=== PATIENT | male | born 1975 | race African-American/Black ===

== ENCOUNTER 2016-12-07 18:13 | Inpatient (IN) | payer OTHER ==
[2016-12-07 19:26] VITALS: BMI 18.8
--- NOTE | 2016-12-07 20:51 | HP ---
COWS - Scale Resting Pulse: 1= [place] 81-100 Sweatin= Chills/Flushing Restless Observation: 5= Unable to Sit Still Pupil Size: 1= Pupils >than Normal Bone or Joint Aches: 4=Acute Joint/Muscle Pain Runny Nose/ Eye Tearin= Runny Nose/Eyes GI Upset > 30mins: 3= Vomiting/Diarrhea Tremor Observation: 4= Gross Tremor/Twitching Yawning Observation: 0= None Anxiety or Irritability: 2=Irritable/Anxious Goose Flesh Skin: 0=Smooth Skin COWS Score: 23 CIWA Score - CIWA Score Nausea/Vomitin Muscle Tremors: 4-Moderate,w/Arms Extend Anxiety: 4-Mod. Anxious/Guarded Agitation: 4-Moderately Restless Paroxysmal Sweats: 3 Orientation: 1-Uncertain about Date Tacttile Disturbances: 3-Moderate Itch/Numb/Burn Auditory Disturbances: 0-None Visual Disturbances: 3-Moderate Sensitivity Headache: 3-Moderate CIWA-Ar Total Score: 28 Admission ROS S - HPI Chief Complaint: C/O WITHDRAWAL SX'S. SEEKING DETOX TXMENT Allergies/Adverse Reactions: Allergies Allergy/AdvReac Type Severity Reaction Status Date / Time pork derived (porcine) Allergy Intermediate Rash Verified 12/07/16 20:14 aspirin AdvReac Severe NOSEBLEED Verified 12/07/16 20:14 ibuprofen AdvReac Severe nosebleed Verified 12/07/16 20:14 History of Present Illness: 41 Y.O. TRANSGENDER MALE ADMITTED FOR OPIATE AND ALCOHOL DEPENDENCE. CLIENT IS KNOW TO [facility]. SELF REFERRED. DENIES RECENT DETOX/REHAB SERVICES. DENIES ANY SIGNIFICANT CLEAN TIME Exam Limitations: No Limitations - Ebola screening Have you traveled outside of the country in the last 21 days: No Have you had contact with anyone from an Ebola affected area: No Have you been sick,other than usual withdrawal symptoms: No Do you have a fever: No - Review of Systems Constitutional: Chills, Loss of Appetite, Malaise, Night Sweats, Changes in sleep EENT: reports: Tearing, Dental Problems (MISSING TEETH) Respiratory: reports: Shortness of Breath Cardiac: reports: No Symptoms Reported GI: reports: Nausea, Poor Appetite, Vomiting, Abdominal cramping : reports: No Symptoms Reported Musculoskeletal: reports: Back Pain, Joint Pain Integumentary: reports: No Symptoms Reported Neuro: reports: Seizure Endocrine: reports: No Symptoms Reported Hematology: reports: No Symptoms Reported Psychiatric: reports: Anxious, Depressed Other Systems: Reviewed and Negative Patient History - Patient Medical History Hx Anemia: No Hx Asthma: Yes (albuterol) Hx Chronic Obstructive Pulmonary Disease (COPD): No Hx Cancer: No Hx Cardiac Disorders: No Hx Congestive Heart Failure: No Hx Hypertension: No Hx Hypercholesterolemia: No Hx Pacemaker: No HX Cerebrovascular Accident: No Hx Seizures: Yes (etoh seizure at age 17 yrs) Hx Dementia: No Hx Diabetes: No Hx Gastrointestinal Disorders: No Hx Liver Disease: No Hx Genitourinary Disorders: No Hx Sexually Transmitted Disorders: No Hx Renal Disease (ESRD): No Hx Thyroid Disease: No Hx Human Immunodeficiency Virus (HIV): No Hx Hepatitis C: No Hx Depression: Yes Hx Suicide Attempt: No Hx Bipolar Disorder: Yes (MANIC DEPRESSION) Hx Schizophrenia: Yes Other Medical History: ANXIETY , PTSD, TRANSGENDER MALE - Patient Surgical History Past Surgical History: Yes Hx Neurologic Surgery: No Hx Cataract Extraction: No Hx Cardiac Surgery: No Hx Lung Surgery: No Hx Breast Surgery: No Hx Breast Biopsy: No Hx Abdominal Surgery: No Hx Appendectomy: No Hx Cholecystectomy: No Hx Genitourinary Surgery: No Hx Section: No Hx Orthopedic Surgery: No Other Surgical History: fx, left mandible at age 17 Anesthesia Reaction: No - PPD History Previous Implant?: Yes Documented Results: Negative w/o proof Date: 11/22/14 Results: 0 MM PPD to be Administered?: Yes - Reproductive History Last Menstrual Period: 02/23/12 - Smoking Cessation Smoking history: Current every day smoker Have you smoked in the past 12 months: No Aproximately how many cigarettes per day: 40 Cigars Per Day: 0 Hx Chewing Tobacco Use: No Initiated information on smoking cessation: Yes 'Breaking Loose' booklet given: 12/07/16 - Substance & Tx. History Hx Alcohol Use: Yes Hx Substance Use: Yes Substance Use Type: Alcohol, Cocaine, Heroin, Marijuana Hx Substance Use Treatment: Yes ([facility]) - Substances Abused Alcohol Route: Oral Frequency: Daily Amount used: liquor- 2 pints, beer- 3 , 40oz Age of first use: 15 Date of Last Use: 12/06/16 Heroin Route: Inhalation Frequency: Daily Amount used: 7 bags Age of first use: 15 Date of Last Use: 12/07/16 Family Disease History - Family Disease History Family Disease History: Heart Disease: Grandparent, [place]: Grandparent, Respiratory : Sister, Other: Father (alcohol), Mother (alcohol) Admission Physical Exam [facility] - Vital Signs Vital Signs: Vital Signs - 24 hr 12/07/16 19:23 Temperature 99.0 F Pulse Rate 88 Respiratory 20 Rate Blood Pressure 115/70 - Physical General Appearance: Yes: Appropriately Dressed, Moderate Distress, Thin, Tremorous, Anxious HEENTM: Yes: EOMI, Normocephalic, Normal Voice, Pharynx Normal, Other (EYE EXAM LIMITED DUE TO HAVING COLORED LENSES) Respiratory: Yes: Chest Non-Tender, Lungs Clear, Normal Breath Sounds, Decreased Breath Sounds, No Respiratory Distress, No Accessory Muscle Use Neck: Yes: No masses,lesions,Nodules, Supple, Trachea in good position Breast: Yes: Breast Exam Deferred Cardiology: Yes: Regular Rhythm, Regular Rate, S1, S2 Abdominal: Yes: Normal Bowel Sounds, Non Tender, Flat, Soft Genitourinary: Yes: Within Normal Limits Back: Yes: Within Normal Limits Musculoskeletal: Yes: full range of Motion, Gait Steady Extremities: Yes: Normal Range of Motion, Non-Tender, Tremors Neurological: Yes: Alert, Motor Strength 5/5 Integumentary: Yes: Normal Color, Dry, Warm Lymphatic: Yes: Within Normal Limits - Diagnostic (1) Asthma Current Visit: Yes Status: Chronic (2) Nicotine dependence Current Visit: Yes Status: Chronic Qualifiers: Nicotine product type: cigarettes Substance use status: uncomplicated Qualified Code(s): F17.210 - Nicotine dependence, cigarettes, uncomplicated (3) Alcohol dependence with uncomplicated withdrawal Current Visit: Yes Status: Chronic (4) Opioid dependence with withdrawal Current Visit: Yes Status: Chronic (5) Cocaine dependence, uncomplicated Current Visit: Yes Status: Chronic (6) Cannabis dependence, uncomplicated Current Visit: Yes Status: Chronic (7) [id number] transgender person Current Visit: Yes Status: Chronic Cleared for Admission [facility] - Detox or Rehab [facility] Level of Care: Medically Managed Detox Regimen/Protocol: Methadone/Librium [facility] Breath Alcohol Content Breath Alcohol Content: 0 Urine Drug Screen - Results Drug Screen Negative: No Urine Drug Screen Results: THC-Marijuana, EMMA-Cocaine, OPI-Opiates
[2016-12-07] MEDS ORDERED: guaiFENesin/D-METHORPHAN HB 10 ML UNIT-DOSE CUPS PO PRN (21:08)
[2016-12-07] MEDS ORDERED: METHADONE HCL 10 MG TABLET (FOR DETOX USE ONLY) PO ONE ×2 (21:08→23:00)
[2016-12-07] MEDS ORDERED: MENTHOL/PHENOL 1 EACH UD MM PRN (21:08)
[2016-12-07] MEDS ORDERED: ACETAMINOPHEN 325 MG TABLET (FP) PO PRN (21:08)
[2016-12-07] MEDS ORDERED: diphenhydrAMINE HCL 50 MG CAPSULE PO PRN (21:08)
[2016-12-07] MEDS ORDERED: MAGNESIUM HYDROX 2400MG/30ML ORAL SUSPENSION 30 ML CUP PO PRN (21:08)
[2016-12-07] MEDS ORDERED: P-EPHED 60MG/TRIPROLIDI 2.5MG TABLET PO PRN (21:08)
[2016-12-07] MEDS ORDERED: MAG HYDROX/AL HYDROX/SIMETH 30 ML UNIT-DOSE CUP PO PRN (21:08)
[2016-12-07] MEDS ORDERED: chlordiazePOXIDE HCL 25 MG CAPSULE PO PRN (21:08)
[2016-12-07] MEDS ORDERED: MAGNESIUM CITRATE 300 ML BOTTLE PO PRN (21:08)
[2016-12-07] MEDS ORDERED: LOPERAMIDE HCL 2 MG CAPSULE PO PRN (21:08)
[2016-12-07] MEDS: THIAMINE HCL 100 MG TABLET (FP) PO SCH (22:13)
[2016-12-07] MEDS: NICOTINE 21 MG/24 HOURS TOPICAL PATCH TD SCH (22:14)
[2016-12-07] MEDS: chlordiazePOXIDE HCL 25 MG CAPSULE PO SCH (22:14)
[2016-12-07] MEDS: CYCLOBENZAPRINE HCL 10 MG TABLET (FP) PO PRN (22:17)
[2016-12-08] MEDS: chlordiazePOXIDE HCL 25 MG CAPSULE PO SCH ×4 (05:53→22:22)
--- NOTE | 2016-12-08 09:14 | CONSULT ---
[facility] Psychiatric Consult - Data Date of interview: 12/08/16 Admission source: [facility] Identifying data: This is 41 years old transgender male with no [id number] hospitalization history, history of MDD and Biupolr disorder, PTSD history, inotxicated with: Opioids, Alcohol, Cannabis and Cocaine, Nicotine Substance Abuse History: - Smoking Cessation. Smoking history: Current every day smoker. Have you smoked in the past 12 months: No. Aproximately how many cigarettes per day: 40. Cigars Per Day: 0. Hx Chewing Tobacco Use: No. Initiated information on smoking cessation: Yes. 'Breaking Loose' booklet given : 12/07/16. - Substance & Tx. History. Hx Alcohol Use: Yes. Hx Substance Use : Yes. Substance Use Type: Alcohol, Cocaine, Heroin, Marijuana. Hx Substance Use Treatment: Yes ([facility]). - Substances Abused. Alcohol. Route: Oral. Frequency: Daily. Amount used: liquor- 2 pints, beer- 3 , 40oz. Age of first use: 15. Date of Last Use: 12/06/16. Heroin. Route: Inhalation. Frequency : Daily. Amount used: 7 bags. Age of first use: 15. Date of Last Use: Medical History: Asthma, Syncope, mWeight loiss, Psychiatric History: Patient reports MDD, Bipolar Disorder history, reportsa taking prior to admission: Wellbutrin XL 150mg p[oqd. Trazodone 300mg po qhs. Zoloft 100mg poqd. Seroquel 100mg po tid. Depakote 500mg po bid Physical/Sexual Abuse/Trauma History: Unclear Additional Comment: Wellbutrin XL 150mg p[oqd. Trazodone 300mg po qhs. Zoloft 100mg poqd. Seroquel 100mg po tid. Depakote 500mg po bid Mental Status Exam - Mental Status Exam Alert and Oriented to: Person Cognitive Function: Fair Patient Appearance: Unkempt Mood: Sad Affect: Flat Patient Behavior: Sedated Speech Pattern: Delayed Voice Loudness: Mildly Soft/Quiet Thought Process: Circumstantial Thought Disorder: Being Controlled Hallucinations: Denies Suicidal Ideation: Denies Homicidal Ideation: Denies Insight/Judgement: Fair Sleep: Difficulty falling asleep Appetite: Fair Muscle strength/Tone: Normal Gait/Station: Shuffling Additional Comments: Wellbutrin XL 150mg p[oqd. Trazodone 300mg po qhs. Zoloft 100mg poqd. Seroquel 100mg po tid. Depakote 500mg po bid Psychiatric Findings - Problem List (Hopkins 1, 2,3) (1) Alcohol dependence with uncomplicated withdrawal Current Visit: Yes Status: Chronic (2) Cannabis dependence, uncomplicated Current Visit: Yes Status: Chronic (3) Cocaine dependence, uncomplicated Current Visit: Yes Status: Chronic (4) [id number] transgender person Current Visit: Yes Status: Chronic (5) Nicotine dependence Current Visit: Yes Status: Chronic Qualifiers: Nicotine product type: cigarettes Substance use status: uncomplicated Qualified Code(s): F17.210 - Nicotine dependence, cigarettes, uncomplicated (6) Opioid dependence with withdrawal Current Visit: Yes Status: Chronic (7) Manic depressive disorder Current Visit: No Status: Acute (8) Bipolar disorder Current Visit: No Status: Chronic (9) Cannabis dependence Current Visit: No Status: Chronic (10) Cocaine dependence Current Visit: No Status: Chronic (11) Drug-induced mood disorder Current Visit: No Status: Chronic (12) PTSD (post-traumatic stress disorder) Current Visit: No Status: Chronic - Initial Treatment Plan Initial Treatment Plan: Wellbutrin XL 150mg p[oqd. Trazodone 300mg po qhs. Zoloft 100mg poqd. Seroquel 100mg po tid. Depakote 500mg po bid
[2016-12-08] MEDS ORDERED: METHADONE HCL 10 MG TABLET (FOR DETOX USE ONLY) PO SCH (10:00)
[2016-12-08 10:01] LABS: MCHC 33.4 g/dl (32.0-35.9); MEAN CELL VOLUME 86.7 fl (80-96); MEAN PLT VOLUME 7.5 fl (7.5-11.1); PLATELET COUNT 346 K/MM3 (134-434); RDW 16.8 % (11.9-15.9); WHITE BLOOD COUNT 7.4 K/mm3 (4.0-10.0)
[2016-12-08 10:34] LABS: ALBUMIN 3.5 g/dl (3.4-5.0); ANION GAP 8 (8-16); CALCIUM 9.4 mg/dL (8.5-10.1); CO2 29 mmol/L (21-32); GLUCOSE,RANDOM 96 mg/dL (74-106)
[2016-12-08 10:37] LABS: ALK PHOS 55 U/L (45-117); BILIRUBIN,TOTAL 0.4 mg/dL (0.2-1.0); COCKROFT - GAULT 99.98; CREATININE 0.7 mg/dL (0.7-1.3); SGOT/AST 13 U/L (15-37); SGPT/ALT 14 U/L (12-78)
[2016-12-08] MEDS: DIVALPROEX SODIUM 500 MG TABLET E.C. PO SCH ×2 (10:38→22:22)
[2016-12-08] MEDS: NICOTINE 21 MG/24 HOURS TOPICAL PATCH TD SCH (10:38)
[2016-12-08] MEDS: SERTRALINE HCL 50 MG TABLET (FP) PO SCH (10:38)
[2016-12-08] MEDS: PRENATAL VITAMINS W/ FOLIC ACID TABLET (FP) PO SCH (10:38)
--- NOTE | 2016-12-08 11:07 | PN ---
[facility] CIWA - CIWA Score Nausea/Vomitin-No Nausea/No Vomiting Muscle Tremors: 3 Anxiety: 3 Agitation: 3 Paroxysmal Sweats: 3 Orientation: 0-Oriented Tacttile Disturbances: 0-None Auditory Disturbances: 0-None Visual Disturbances: 0-None Headache: 1-Very Mild CIWA-Ar Total Score: 13 [facility] COWS - Scale Resting Pulse: 0= [place] 80 or Below Sweatin=Flushed/Facial Moisture Restless Observation: 1= Difficult to Sit Still Pupil Size: 0= Normal to Room Light Bone or Joint Aches: 2= Severe Diffuse Aches Runny Nose/ Eye Tearin= Nasal Congestion GI Upset > 30mins: 1= Stomach Cramp Tremor Observation of Outstretched Hands: 2= Slight Tremor Visible Yawning Observation: 2= >3x During Session Anxiety or Irritability: 2=Irritable/Anxious Goose Flesh Skin: 3=Piloerection COWS Score: 16 S Progress Note (SOAP) Subjective: sweats shakes interrupted sleep irritable anxiety Objective: 12/08/16 11:06 Vital Signs Temperature 97.9 F 12/08/16 09:59 Pulse Rate 67 12/08/16 09:59 Respiratory Rate 18 12/08/16 09:59 Blood Pressure 107/71 12/08/16 09:59 O2 Sat by Pulse Oximetry (%) Laboratory Tests 12/08/16 07:00 WBC 7.4 RBC 4.11 D Hgb 11.9 D Hct 35.6 D MCV 86.7 MCHC 33.4 RDW 16.8 H Plt Count 346 MPV 7.5 labs pending awake/alert ambulating no acute distress Assessment: 12/08/16 11:06 withdrawal sx Plan: continue detox increase fluids labs pending
--- NOTE | 2016-12-08 12:49 | EKG ---
Test Reason : Blood Pressure : / mmHG Vent. Rate : 076 BPM Atrial Rate : 082 BPM P-R Int : 162 ms QRS Dur : 102 ms QT Int : 368 ms P-R-T Axes : 080 050 039 degrees QTc Int : 414 ms SINUS RHYTHM WITH MARKED SINUS ARRHYTHMIA POSSIBLE LEFT ATRIAL ENLARGEMENT INCOMPLETE RIGHT BUNDLE BRANCH BLOCK BORDERLINE ECG NO PREVIOUS ECGS AVAILABLE Confirmed by JESSICA CARY MD ([id number]) on 12/08/2016 12:49:29 PM Referred By: Confirmed By:JESSICA CARY MD
[2016-12-08] MEDS: QUEtiapine FUMARATE 100 MG TABLET (FP) PO SCH ×2 (14:56→22:23)
[2016-12-08] MEDS: traZODone HCL 100 MG TABLET (FP) PO SCH (22:22)
[2016-12-08] MEDS: THIAMINE HCL 100 MG TABLET (FP) PO SCH (22:23)
[2016-12-09] MEDS: chlordiazePOXIDE HCL 25 MG CAPSULE PO SCH ×3 (05:42→17:45)
[2016-12-09] MEDS: QUEtiapine FUMARATE 100 MG TABLET (FP) PO SCH (05:42)
[2016-12-09] MEDS: SERTRALINE HCL 50 MG TABLET (FP) PO SCH ×2 (11:04→22:27)
--- NOTE | 2016-12-09 11:50 | PN ---
Psychiatric Progress Note Vital Signs: Vital Signs Period Temp Pulse Resp BP Sys/Johnson Pulse Ox Last 24 Hr 97.3 F-98.1 F 61-72 16-18 93-117/58-74 Date of Session: 12/09/16 Chief Complaint:: As per nursing report patient is sedated HPI: Patient found at bedside sedated , with sliw speech but iriented and following directions. Medications changed : Depakote 250mg po bid. Seroquel 50mg po tid. Zoloft 50mg po qhs Current Medications: Active Medications Generic Name Dose Route Start Last Admin Trade Name Freq PRN Reason Stop Dose Admin Acetaminophen 650 mg 12/07/16 21:08 Tylenol - PO Q4H PRN FEVER OR PAIN Al Hydroxide/Mg Hydroxide 30 ml 12/07/16 21:08 Mylanta Oral Suspension - PO Q6H PRN DYSPEPSIA Bupropion HCl 150 mg 12/08/16 10:00 12/08/16 10:38 Wellbutrin Xl - PO 150 mg DAILY [facility] Administration Chlordiazepoxide HCl 10 mg 12/10/16 23:00 Librium - PO 12/11/16 17:01 [id number] [facility] Chlordiazepoxide HCl 25 mg 12/07/16 21:08 Librium - PO 12/10/16 21:09 Q4H PRN WITHDRAWAL(CONT SUBST) Chlordiazepoxide HCl 25 mg 12/08/16 23:00 12/09/16 11:04 Librium - PO 12/09/16 17:01 Not Given [id number] [facility] Chlordiazepoxide HCl 15 mg 12/09/16 23:00 Librium - PO 12/10/16 17:01 [id number] [facility] Cyclobenzaprine HCl 10 mg 12/07/16 21:12 12/07/16 22:17 Flexeril - PO 10 mg TID PRN Administration MUSCLE SPASMS Diphenhydramine HCl 50 mg 12/07/16 21:08 Benadryl - PO HSMR1 PRN INSOMNIA Divalproex Sodium 250 mg 12/09/16 11:42 Depakote - PO BID [facility] Eucalyptus/Menthol/Phenol/Sorbitol 1 each 12/07/16 21:08 Cepastat Lozenge - MM Q4H PRN SORE THROAT Guaifenesin 10 ml 12/07/16 21:08 Robitussin Dm - PO Q6H PRN COUGH Loperamide HCl 4 mg 12/07/16 21:08 Imodium - PO Q6H PRN DIARRHEA Magnesium Citrate 300 ml 12/07/16 21:08 Citroma - PO Q48H PRN CONSTIPATION Magnesium Hydroxide 30 ml 12/07/16 21:08 Milk Of Magnesia - PO DAILY PRN CONSTIPATION Methadone HCl 10 mg 12/11/16 10:00 Dolophine - PO 12/11/16 10:01 DAILY [facility] Methadone HCl 15 mg 12/09/16 10:00 Dolophine - PO 12/10/16 10:01 DAILY [facility] Methadone HCl 5 mg 12/12/16 06:00 Dolophine - PO 12/12/16 06:01 DAILY@0600 [facility] Nicotine 21 mg 12/07/16 21:15 12/08/16 10:38 Nicoderm Patch - TD 21 mg DAILY [facility] Administration Nicotine Polacrilex 4 mg 12/07/16 21:08 Nicorette Gum - BC Q2H PRN NICOTINE REPLACEMENT RX Multivit/Folic Acid/Iron 1 tab 12/08/16 10:00 12/08/16 10:38 Vitamins (Sjr) - PO 1 tab DAILY [facility] Administration Pseudoephedrine/Triprolidine 1 combo 12/07/16 21:08 Actifed - PO TID PRN NASAL CONGESTION Quetiapine Fumarate 50 mg 12/09/16 11:42 Seroquel - PO TID [facility] Sertraline HCl 100 mg 12/09/16 22:00 Zoloft - PO HS [facility] Thiamine HCl 100 mg 12/07/16 22:00 12/08/16 22:23 Vitamin B1 - PO 100 mg HS [facility] Administration Trazodone HCl 300 mg 12/08/16 22:00 12/08/16 22:22 Desyrel - PO Not Given HS [facility] Mental Status Exam - Mental Status Exam Alert and Oriented to: Person Cognitive Function: Fair Patient Appearance: Unkempt Mood: Sad Affect: Flat Patient Behavior: Passive, Sedated Speech Pattern: Delayed Voice Loudness: Mildly Soft/Quiet Thought Process: Circumstantial Thought Disorder: Being Controlled Hallucinations: Denies Suicidal Ideation: Denies Homicidal Ideation: Denies Insight/Judgement: Fair Sleep: Fair Appetite: Fair Muscle strength/Tone: Mild Hypotonicity Gait/Station: Shuffling Additional Comments: Depakote 250mg po bid. Seroquel 50mg po tid. Zoloft 50mg po qhs Psychiatric Treatment Plan - Problem List (1) Alcohol dependence with uncomplicated withdrawal Current Visit: Yes (2) Cannabis dependence, uncomplicated Current Visit: Yes (3) Cocaine dependence, uncomplicated Current Visit: Yes (4) [id number] transgender person Current Visit: Yes (5) Nicotine dependence Current Visit: Yes Qualifiers: Nicotine product type: cigarettes Substance use status: uncomplicated Qualified Code(s): F17.210 - Nicotine dependence, cigarettes, uncomplicated (6) Opioid dependence with withdrawal Current Visit: Yes (7) Manic depressive disorder Current Visit: No (8) Bipolar disorder Current Visit: No (9) Cannabis dependence Current Visit: No (10) Cocaine dependence Current Visit: No (11) Drug-induced mood disorder Current Visit: No (12) PTSD (post-traumatic stress disorder) Current Visit: No Initial treatment plan: Depakote 250mg po bid. Seroquel 50mg po tid. Zoloft 50mg po qhs
[2016-12-09] MEDS: METHADONE HCL 5 MG TABLET (FOR DETOX USE ONLY) PO SCH (11:59)
[2016-12-09] MEDS: PRENATAL VITAMINS W/ FOLIC ACID TABLET (FP) PO SCH (12:04)
[2016-12-09] MEDS: NICOTINE 21 MG/24 HOURS TOPICAL PATCH TD SCH (12:04)
[2016-12-09] MEDS: DIVALPROEX SODIUM 500 MG TABLET E.C. PO SCH (12:11)
--- NOTE | 2016-12-09 12:42 | PN ---
[facility] CIWA - CIWA Score Nausea/Vomitin-No Nausea/No Vomiting Muscle Tremors: 3 Anxiety: 2 Agitation: 2 Paroxysmal Sweats: 3 Orientation: 0-Oriented Tacttile Disturbances: 0-None Auditory Disturbances: 0-None Visual Disturbances: 0-None Headache: 1-Very Mild CIWA-Ar Total Score: 11 S COWS - Scale Resting Pulse: 0= [place] 80 or Below Sweatin= Chills/Flushing Restless Observation: 0= Sits Still Pupil Size: 0= Normal to Room Light Bone or Joint Aches: 2= Severe Diffuse Aches Runny Nose/ Eye Tearin= Nasal Congestion GI Upset > 30mins: 0= None Tremor Observation of Outstretched Hands: 1= Tremor Humble, Not Seen Yawning Observation: 2= >3x During Session Anxiety or Irritability: 1=Feels Anxious/Irritable Goose Flesh Skin: 3=Piloerection COWS Score: 11 [facility] Progress Note (SOAP) Subjective: sweats very sleepy/groggy interrupted sleep Objective: 12/09/16 12:39 Vital Signs Temperature 97.9 F 12/09/16 09:54 Pulse Rate 72 12/09/16 09:54 Respiratory Rate 18 12/09/16 09:54 Blood Pressure 107/60 12/09/16 09:54 O2 Sat by Pulse Oximetry (%) Laboratory Tests 12/07/16 12/08/16 12/08/16 07:00 07:00 07:00 WBC 7.4 RBC 4.11 D Hgb 11.9 D Hct 35.6 D MCV 86.7 MCHC 33.4 RDW 16.8 H Plt Count 346 MPV 7.5 Sodium 139 Potassium 4.0 Chloride 102 Carbon Dioxide 29 Anion Gap 8 BUN 11 D Creatinine 0.7 Creat Clearance w eGFR > 60 Random Glucose 96 Calcium 9.4 Total Bilirubin 0.4 AST 13 L D ALT 14 Alkaline Phosphatase 55 D Total Protein 7.0 Albumin 3.5 RPR Titer Hepatitis C Antibody <0.1 12/08/16 07:00 WBC RBC Hgb Hct MCV MCHC RDW Plt Count MPV Sodium Potassium Chloride Carbon Dioxide Anion Gap BUN Creatinine Creat Clearance w eGFR Random Glucose Calcium Total Bilirubin AST ALT Alkaline Phosphatase Total Protein Albumin RPR Titer Nonreactive Hepatitis C Antibody awake/alert ambulating no acute distress Assessment: 12/09/16 12:39 mild withdrawal sx too sleepy, psych ordered for evaluation of medication that has been ordered. Plan: psych consultation ordered for medication revision hold librium medication until pt more awake
[2016-12-09] MEDS: QUEtiapine FUMARATE 50 MG TABLET PO SCH ×2 (13:57→22:27)
[2016-12-09] MEDS: THIAMINE HCL 100 MG TABLET (FP) PO SCH (22:26)
[2016-12-09] MEDS: CYCLOBENZAPRINE HCL 10 MG TABLET (FP) PO PRN (22:27)
[2016-12-09] MEDS: chlordiazePOXIDE 5 MG CAPSULE PO SCH (22:27)
[2016-12-09] MEDS: DIVALPROEX SODIUM 250 MG TABLET E.C. (FP) PO SCH (22:27)
[2016-12-09] MEDS: NICOTINE POLACRILEX 4 MG GUM BC PRN (22:29)
[2016-12-09] MEDS: traZODone HCL 100 MG TABLET (FP) PO SCH (22:29)
[2016-12-10] MEDS: chlordiazePOXIDE 5 MG CAPSULE PO SCH ×3 (07:04→16:56)
[2016-12-10] MEDS: QUEtiapine FUMARATE 50 MG TABLET PO SCH ×3 (07:05→22:12)
[2016-12-10] MEDS: DIVALPROEX SODIUM 250 MG TABLET E.C. (FP) PO SCH ×2 (10:52→22:12)
[2016-12-10] MEDS: METHADONE HCL 5 MG TABLET (FOR DETOX USE ONLY) PO SCH (10:53)
[2016-12-10] MEDS: PRENATAL VITAMINS W/ FOLIC ACID TABLET (FP) PO SCH (10:53)
[2016-12-10] MEDS: NICOTINE 21 MG/24 HOURS TOPICAL PATCH TD SCH (10:53)
--- NOTE | 2016-12-10 11:52 | PN ---
[facility] Progress Note (SOAP) Subjective: sweats agitation body aches Objective: 12/10/16 11:51 Vital Signs Temperature 97.9 F 12/10/16 11:03 Pulse Rate 62 12/10/16 11:03 Respiratory Rate 18 12/10/16 11:03 Blood Pressure 116/74 12/10/16 11:03 O2 Sat by Pulse Oximetry (%) awake/alert ambulating no acute distress Assessment: 12/10/16 11:52 withdrawal sx Plan: continue detox increase fluids
[2016-12-10] MEDS: NICOTINE POLACRILEX 4 MG GUM BC PRN ×2 (14:29→22:15)
[2016-12-10] MEDS: THIAMINE HCL 100 MG TABLET (FP) PO SCH (22:11)
[2016-12-10] MEDS: SERTRALINE HCL 50 MG TABLET (FP) PO SCH (22:12)
[2016-12-10] MEDS: CYCLOBENZAPRINE HCL 10 MG TABLET (FP) PO PRN (22:12)
[2016-12-10] MEDS: chlordiazePOXIDE HCL 10 MG CAPSULE PO SCH (22:12)
[2016-12-10] MEDS: traZODone HCL 100 MG TABLET (FP) PO SCH (22:29)
[2016-12-11] MEDS: chlordiazePOXIDE HCL 10 MG CAPSULE PO SCH ×3 (06:01→17:53)
[2016-12-11] MEDS: QUEtiapine FUMARATE 50 MG TABLET PO SCH ×3 (06:04→22:35)
[2016-12-11] MEDS: NICOTINE POLACRILEX 4 MG GUM BC PRN ×2 (06:06→20:54)
[2016-12-11] MEDS ORDERED: METHADONE HCL 10 MG TABLET (FOR DETOX USE ONLY) PO SCH (10:00)
[2016-12-11] MEDS: DIVALPROEX SODIUM 250 MG TABLET E.C. (FP) PO SCH ×2 (10:39→22:35)
[2016-12-11] MEDS: PRENATAL VITAMINS W/ FOLIC ACID TABLET (FP) PO SCH (10:39)
[2016-12-11] MEDS: NICOTINE 21 MG/24 HOURS TOPICAL PATCH TD SCH (10:40)
--- NOTE | 2016-12-11 15:16 | PN ---
[facility] Progress Note (SOAP) Subjective: Sweating,interrupted sleep,restless Objective: 12/11/16 15:15 Vital Signs - 8 hr 12/11/16 12/11/16 10:00 15:14 Temperature 97.2 F L 97.2 F L Pulse Rate 60 60 Respiratory 16 16 Rate Blood Pressure 108/66 108/66 Laboratory Tests 12/07/16 12/08/16 12/08/16 07:00 07:00 07:00 WBC 7.4 RBC 4.11 D Hgb 11.9 D Hct 35.6 D MCV 86.7 MCHC 33.4 RDW 16.8 H Plt Count 346 MPV 7.5 Sodium 139 Potassium 4.0 Chloride 102 Carbon Dioxide 29 Anion Gap 8 BUN 11 D Creatinine 0.7 Creat Clearance w eGFR > 60 Random Glucose 96 Calcium 9.4 Total Bilirubin 0.4 AST 13 L D ALT 14 Alkaline Phosphatase 55 D Total Protein 7.0 Albumin 3.5 Valproic Acid RPR Titer Hepatitis C Antibody <0.1 12/08/16 12/09/16 12/10/16 07:00 10:30 07:00 WBC RBC Hgb Hct MCV MCHC RDW Plt Count MPV Sodium Potassium Chloride Carbon Dioxide Anion Gap BUN Creatinine Creat Clearance w eGFR Random Glucose Calcium Total Bilirubin AST ALT Alkaline Phosphatase Total Protein Albumin Valproic Acid 3.358 L 44.971 L RPR Titer Nonreactive Hepatitis C Antibody labs noted Assessment: 12/11/16 15:15 Withdrawal sx. Plan: Continue detox
[2016-12-11] MEDS: THIAMINE HCL 100 MG TABLET (FP) PO SCH (22:35)
[2016-12-11] MEDS: traZODone HCL 100 MG TABLET (FP) PO SCH (22:35)
[2016-12-11] MEDS: SERTRALINE HCL 50 MG TABLET (FP) PO SCH (22:35)
[2016-12-12] MEDS ORDERED: METHADONE HCL 5 MG TABLET (FOR DETOX USE ONLY) PO SCH (06:00)
[2016-12-12] MEDS: QUEtiapine FUMARATE 50 MG TABLET PO SCH (06:29)
[2016-12-12] MEDS: NICOTINE POLACRILEX 4 MG GUM BC PRN (06:42)
[2016-12-12 06:49] VITALS: PULSE 70
[2016-12-12 10:23] VITALS: BP 111/67; TEMP 98.2
--- NOTE | 2016-12-12 10:36 | DS ---
[facility] Detox Discharge Summary Admission Date: 12/07/16 Discharge Date: 12/12/16 - History Present History: Alcohol Dependence, Cannabis Dependence, Cocaine Dependence, Opioid Dependence Pertinent Past History: PTSD Asthma - Physical Exam Results Vital Signs: Vital Signs Temperature 98.2 F 12/12/16 10:00 Pulse Rate 70 12/12/16 10:00 Respiratory Rate 18 12/12/16 10:00 Blood Pressure 111/67 12/12/16 10:00 O2 Sat by Pulse Oximetry (%) Pertinent Admission Physical Exam Findings: Withdrawal sx. Laboratory Last Values WBC 7.4 K/mm3 (4.0-10.0) 12/08/16 07:00 RBC 4.11 M/mm3 (4.00-5.60) D 12/08/16 07:00 Hgb 11.9 GM/dL (11.7-16.9) D 12/08/16 07:00 Hct 35.6 % (35.4-49) D 12/08/16 07:00 MCV 86.7 fl (80-96) 12/08/16 07:00 MCHC 33.4 g/dl (32.0-35.9) 12/08/16 07:00 RDW 16.8 % (11.9-15.9) H 12/08/16 07:00 Plt Count 346 K/MM3 (134-434) 12/08/16 07:00 MPV 7.5 fl (7.5-11.1) 12/08/16 07:00 Sodium 139 mmol/L (136-145) 12/08/16 07:00 Potassium 4.0 mmol/L (3.5-5.1) 12/08/16 07:00 Chloride 102 mmol/L (98-107) 12/08/16 07:00 Carbon Dioxide 29 mmol/L (21-32) 12/08/16 07:00 Anion Gap 8 (8-16) 12/08/16 07:00 BUN 11 mg/dL (7-18) D 12/08/16 07:00 Creatinine 0.7 mg/dL (0.7-1.3) 12/08/16 07:00 Creat Clearance w eGFR > 60 (>60) 12/08/16 07:00 Random Glucose 96 mg/dL (74-106) 12/08/16 07:00 Calcium 9.4 mg/dL (8.5-10.1) 12/08/16 07:00 Total Bilirubin 0.4 mg/dL (0.2-1.0) 12/08/16 07:00 AST 13 U/L (15-37) L D 12/08/16 07:00 ALT 14 U/L (12-78) 12/08/16 07:00 Alkaline Phosphatase 55 U/L (45-117) D 12/08/16 07:00 Total Protein 7.0 g/dl (6.4-8.2) 12/08/16 07:00 Albumin 3.5 g/dl (3.4-5.0) 12/08/16 07:00 Valproic Acid 44.971 ug/ml (50-100) L 12/10/16 07:00 RPR Titer Nonreactive (NONREACTIVE) 12/08/16 07:00 Hepatitis C Antibody <0.1 s/co ratio (0.0-0.9) 12/07/16 07:00 labs noted - Treatment Hospital Course: Detox Protocol Followed, Detoxed Safely, Responded well, Discharged Condition Good, Rehab Referral Accepted Patient has Accepted a Rehab Referral to: [facility] - Medication Discharge Medications: Ambulatory Orders Albuterol Sulfate Inhaler - [Ventolin HFA Inhaler -] 2 inh IH Q4H PRN #0 inh Quetiapine Fumarate [Seroquel -] 100 mg PO TID 11/25/13 Bupropion HCl [Wellbutrin -] 150 mg PO DAILY #20 tablet 11/21/14 Divalproex [Depakote -] 500 mg PO BID #60 tablet.ec 11/21/14 Sertraline HCl [Zoloft -] 100 mg PO DAILY #30 tablet 11/21/14 Trazodone HCl [Desyrel -] 300 mg PO HS 12/26/14 Estrogens,Conjugated [Premarin] 25 mg IM ONCE 12/07/16 Bupropion HCl [Wellbutrin Xl -] 150 mg PO DAILY #30 tab MDD 150 12/08/16 Divalproex [Depakote -] 500 mg PO BID #60 tablet.ec 12/08/16 Quetiapine Fumarate [Seroquel] 100 mg PO TID #90 tablet 12/08/16 Sertraline HCl [Zoloft -] 100 mg PO DAILY #30 tablet 12/08/16 Trazodone HCl [Desyrel -] 300 mg PO HS #30 tablet 12/08/16 Bupropion HCl [Wellbutrin Xl -] 150 mg PO DAILY #30 tab.sr.24h 12/09/16 Divalproex [Depakote -] 250 mg PO BID #60 tablet.ec 12/09/16 Divalproex [Depakote -] 250 mg PO BID #60 tablet.ec 12/09/16 Quetiapine Fumarate [Seroquel -] 50 mg PO BID #60 tablet 12/09/16 Quetiapine Fumarate [Seroquel -] 50 mg PO TID #90 tablet 12/09/16 Sertraline HCl [Zoloft] 100 mg PO HS #30 tablet 12/09/16 Trazodone HCl 300 mg PO HS #30 tablet 12/09/16 - Diagnosis (1) Alcohol dependence with uncomplicated withdrawal Current Visit: Yes Status: Chronic (2) Asthma Current Visit: Yes Status: Chronic (3) Cannabis dependence, uncomplicated Current Visit: Yes Status: Chronic (4) Cocaine dependence, uncomplicated Current Visit: Yes Status: Chronic (5) [id number] transgender person Current Visit: Yes Status: Chronic (6) Nicotine dependence Current Visit: Yes Status: Chronic Qualifiers: Nicotine product type: cigarettes Substance use status: uncomplicated Qualified Code(s): F17.210 - Nicotine dependence, cigarettes, uncomplicated (7) Opioid dependence with withdrawal Current Visit: Yes Status: Chronic (8) Manic depressive disorder Current Visit: No Status: Acute - AMA Did Patient Leave Against Medical Advice: No
== END 2016-12-12 11:15 | disposition home or self-care (01) | DRG 773 ==
LOC: YASAS 18:13 → Y6N 20:28
PROVIDERS: ADMIT Internal Medicine; ATTEND Internal Medicine
PROC: HZ2ZZZZ Detoxification Services for Substance Abuse Treatment (ICD-10-PCS; principal; 2016-12-07)
DX: F11.23 Opioid dependence with withdrawal (principal); F10.230 Alcohol dependence with withdrawal, uncomplicated; F14.20 Cocaine dependence, uncomplicated; F12.20 Cannabis dependence, uncomplicated; F17.210 Nicotine dependence, cigarettes, uncomplicated; F31.9 Bipolar disorder, unspecified; F19.24 Other psychoactive substance dependence with psychoactive substance-induced mood disorder; F43.10 Post-traumatic stress disorder, unspecified; J45.909 Unspecified asthma, uncomplicated; Z86.69 Personal history of other diseases of the nervous system and sense organs; Z87.890 Personal history of sex reassignment; Z59.0 Homelessness
CPT/HCPCS: 36415; 80053; 80164; 85027; 86593; 86803; 93005; 93010

== ENCOUNTER 2017-09-19 22:21 | Inpatient (IN) | payer OTHER ==
[2017-09-19 22:44] VITALS: BMI 18.8
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
[2017-09-20] MEDS ORDERED: chlordiazePOXIDE HCL 25 MG CAPSULE PO ONE (00:46)
[2017-09-20] MEDS ORDERED: chlordiazePOXIDE HCL 25 MG CAPSULE PO PRN (00:46)
[2017-09-20] MEDS ORDERED: MAGNESIUM CITRATE 300 ML BOTTLE PO PRN (00:46)
[2017-09-20] MEDS ORDERED: MAG HYDROX/AL HYDROX/SIMETH 30 ML UNIT-DOSE CUP PO PRN (00:46)
[2017-09-20] MEDS ORDERED: LOPERAMIDE HCL 2 MG CAPSULE PO PRN (00:46)
[2017-09-20] MEDS ORDERED: P-EPHED 60MG/TRIPROLIDI 2.5MG TABLET PO PRN (00:46)
[2017-09-20] MEDS ORDERED: MENTHOL/PHENOL 1 EACH UD MM PRN (00:46)
[2017-09-20] MEDS ORDERED: IBUPROFEN 400 MG TABLET (FP) PO PRN (00:46)
[2017-09-20] MEDS ORDERED: guaiFENesin/D-METHORPHAN HB 10 ML UNIT-DOSE CUPS PO PRN (00:46)
[2017-09-20] MEDS ORDERED: ACETAMINOPHEN 325 MG TABLET (FP) PO PRN (00:46)
[2017-09-20] MEDS ORDERED: MAGNESIUM HYDROX 2400MG/30ML ORAL SUSPENSION 30 ML CUP PO PRN (00:46)
[2017-09-20] MEDS ORDERED: ALBUTEROL SO4 18 GM HFA INHALER IH PRN (00:50)
[2017-09-20] MEDS ORDERED: hydrOXYzine PAMOATE 25 MG CAPSULE (FP) PO ONE (01:03)
[2017-09-20] MEDS: chlordiazePOXIDE HCL 25 MG CAPSULE PO SCH ×4 (07:08→22:08)
--- NOTE | 2017-09-20 09:04 | PN ---
S CIWA - CIWA Score Nausea/Vomitin-Mild Nausea/No Vomiting Muscle Tremors: 4-Moderate,w/Arms Extend Anxiety: 4-Mod. Anxious/Guarded Agitation: 4-Moderately Restless Paroxysmal Sweats: 1-Minimal Palms Moist Orientation: 0-Oriented Tacttile Disturbances: 1-Very Mild Itch/Numbness Auditory Disturbances: 0-None Visual Disturbances: 0-None Headache: 1-Very Mild CIWA-Ar Total Score: 16 BHS Progress Note (SOAP) Subjective: sweat tremor sleeplessness anxiety lack of energy irritable restlessness, mild gi distress Objective: 09/20/17 09:03 Vital Signs Temperature 97.7 F 09/20/17 06:25 Pulse Rate 56 L 09/20/17 06:25 Respiratory Rate 16 09/20/17 06:25 Blood Pressure 117/66 09/20/17 06:25 O2 Sat by Pulse Oximetry (%) lab not available at this time Assessment: 09/20/17 09:04 withdrawal sx Plan: continue detox
[2017-09-20] MEDS: CALCIUM (OYSTER SHELL) 500 MG TABLET (FP) PO SCH ×2 (10:20→22:30)
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
[2017-09-20] MEDS: DIVALPROEX SODIUM 250 MG TABLET E.C. PO SCH ×2 (10:54→22:07)
[2017-09-20] MEDS: PRENATAL VITAMINS W/ FOLIC ACID TABLET (FP) PO SCH (10:54)
[2017-09-20] MEDS: NICOTINE 14 MG/24 HOURS TOPICAL PATCH TD SCH (10:56)
--- NOTE | 2017-09-20 16:46 | EKG ---
Test Reason : Blood Pressure : / mmHG Vent. Rate : 060 BPM Atrial Rate : 060 BPM P-R Int : 168 ms QRS Dur : 104 ms QT Int : 390 ms P-R-T Axes : 062 041 038 degrees QTc Int : 390 ms NORMAL SINUS RHYTHM NORMAL ECG WHEN COMPARED WITH ECG OF 07-DEC-2016 21:18, INCOMPLETE RIGHT BUNDLE BRANCH BLOCK IS NO LONGER PRESENT Confirmed by MD John, Aditya ([id number]) on 09/20/2017 4:46:24 PM Referred By: Confirmed By:Aditya Lopez MD
[2017-09-20 17:04] LABS: HEMATOCRIT 44.5 % (35.4-49); HEMOGLOBIN 14.7 GM/dL (11.7-16.9); MCH 27.9 pg (25.7-33.7); MCHC 33.1 g/dl (32.0-35.9); MEAN CELL VOLUME 84.5 fl (80-96); MEAN PLT VOLUME 8.4 fl (7.5-11.1); PLATELET COUNT 383 K/MM3 (134-434); RBC 5.27 M/mm3 (4.00-5.60); RDW 16.3 % (11.9-15.9); WHITE BLOOD COUNT 7.4 K/mm3 (4.0-10.0)
[2017-09-20 17:06] LABS: ANION GAP 11 (8-16); BLOOD UREA NITROGEN 11 mg/dL (7-18); CALCIUM 8.9 mg/dL (8.5-10.1); CHLORIDE 105 mmol/L (98-107); CO2 24 mmol/L (21-32); GLUCOSE,RANDOM 93 mg/dL (74-106); POTASSIUM 3.7 mmol/L (3.5-5.1); SODIUM 140 mmol/L (136-145)
[2017-09-20 17:10] LABS: ALK PHOS 84 U/L (45-117); BILIRUBIN,TOTAL 0.4 mg/dL (0.2-1.0); CREATININE 0.8 mg/dL (0.7-1.3); SGOT/AST 15 U/L (15-37); SGPT/ALT 13 U/L (12-78); TOT PROT 7.6 g/dl (6.4-8.2)
[2017-09-20] MEDS ORDERED: QUEtiapine FUMARATE 100 MG TABLET (FP) PO SCH (22:00)
[2017-09-20] MEDS ORDERED: MELATONIN 5 MG TABLETS PO PRN (22:00)
[2017-09-20] MEDS: THIAMINE HCL 100 MG TABLET (FP) PO SCH (22:08)
[2017-09-21] MEDS: chlordiazePOXIDE HCL 25 MG CAPSULE PO SCH ×4 (05:30→22:10)
[2017-09-21] MEDS: NICOTINE 14 MG/24 HOURS TOPICAL PATCH TD SCH (10:23)
[2017-09-21] MEDS: CALCIUM (OYSTER SHELL) 500 MG TABLET (FP) PO SCH ×2 (10:23→23:11)
[2017-09-21] MEDS: PRENATAL VITAMINS W/ FOLIC ACID TABLET (FP) PO SCH (10:23)
[2017-09-21] MEDS: DIVALPROEX SODIUM 250 MG TABLET E.C. PO SCH ×2 (10:23→22:10)
[2017-09-21] MEDS: NICOTINE POLACRILEX 2 MG GUM BC PRN ×2 (10:26→23:12)
--- NOTE | 2017-09-21 11:11 | PN ---
S CIWA - CIWA Score Nausea/Vomitin Muscle Tremors: 2 Anxiety: 3 Agitation: 2 Paroxysmal Sweats: 1-Minimal Palms Moist Orientation: 0-Oriented Tacttile Disturbances: 1-Very Mild Itch/Numbness Auditory Disturbances: 0-None Visual Disturbances: 0-None Headache: 1-Very Mild CIWA-Ar Total Score: 12 BHS Progress Note (SOAP) Subjective: nausea, swetas, interrupted sleep, anxiety, tremors Objective: 09/21/17 11:10 Vital Signs - 24 hr 09/20/17 09/20/17 09/20/17 14:37 17:23 22:26 Temperature 97.5 F L 97.5 F L 97.9 F Pulse Rate 57 L 57 L 64 Respiratory 18 16 20 Rate Blood Pressure 118/62 92/62 105/67 09/21/17 09/21/17 09/21/17 00:30 03:30 06:42 Temperature 97.5 F L Pulse Rate 58 L Respiratory 18 18 16 Rate Blood Pressure 95/54 09/21/17 10:00 Temperature 97.5 F L Pulse Rate 60 Respiratory 18 Rate Blood Pressure 107/64 Laboratory Tests 09/20/17 09/20/17 09/20/17 08:30 08:30 08:30 WBC 7.4 RBC 5.27 D Hgb 14.7 D Hct 44.5 D MCV 84.5 MCH 27.9 MCHC 33.1 RDW 16.3 H Plt Count 383 MPV 8.4 D Sodium 140 Potassium 3.7 Chloride 105 Carbon Dioxide 24 Anion Gap 11 BUN 11 Creatinine 0.8 Creat Clearance w eGFR > 60 Random Glucose 93 Calcium 8.9 Total Bilirubin 0.4 AST 15 ALT 13 Alkaline Phosphatase 84 D Total Protein 7.6 Albumin 4.0 RPR Titer Nonreactive Assessment: 09/21/17 11:11 withdrawal sx - cont detox, fluids, encourage ambualtion, psych consult ordered as requested by minor
--- NOTE | 2017-09-21 14:25 | PN ---
Psychiatric Progress Note Vital Signs: Vital Signs Period Temp Pulse Resp BP Sys/Johnson Pulse Ox Last 24 Hr 97.5 F-97.9 F 57-64 16-20 92-118/54-67 Date of Session: 09/21/17 Chief Complaint:: "I would like to start my morning medication." HPI: Pt. admitted to for alcohol, cocaine, and marijuana dependence. ROS: Unremarkable. Current Medications: Active Medications Generic Name Dose Route Start Last Admin Trade Name Freq PRN Reason Stop Dose Admin Al Hydroxide/Mg Hydroxide 30 ml 09/20/17 00:46 Mylanta Oral Suspension - PO Q6H PRN DYSPEPSIA Albuterol Sulfate 2 puff 09/20/17 00:50 Ventolin Hfa Inhaler - IH Q4H PRN ASTHMA Calcium Carbonate 500 mg 09/20/17 10:00 09/21/17 10:23 Os-Saji 500mg - PO 500 mg BID ENID Administration Chlordiazepoxide HCl 25 mg 09/21/17 05:00 09/21/17 10:23 Librium - PO 09/21/17 23:01 25 mg [id number] ENID Administration Chlordiazepoxide HCl 15 mg 09/22/17 05:00 Librium - PO 09/22/17 23:01 [id number] ENID Chlordiazepoxide HCl 25 mg 09/20/17 00:46 Librium - PO 09/23/17 00:45 Q4H PRN WITHDRAWAL(CONT SUBST) Chlordiazepoxide HCl 10 mg 09/23/17 05:00 Librium - PO 09/23/17 23:01 [id number] ENID Divalproex Sodium 250 mg 09/20/17 10:00 09/21/17 10:23 Depakote - PO 250 mg BID ENID Administration Eucalyptus/Menthol/Phenol/Sorbitol 1 each 09/20/17 00:46 Cepastat Lozenge - MM Q4H PRN SORE THROAT Guaifenesin 10 ml 09/20/17 00:46 Robitussin Dm - PO Q6H PRN COUGH Loperamide HCl 4 mg 09/20/17 00:46 Imodium - PO Q6H PRN DIARRHEA Magnesium Citrate 300 ml 09/20/17 00:46 Citroma - PO Q48H PRN CONSTIPATION Magnesium Hydroxide 30 ml 09/20/17 00:46 Milk Of Magnesia - PO DAILY PRN CONSTIPATION Melatonin 5 mg 09/20/17 22:00 Melatonin PO HS PRN INSOMNIA Nicotine 14 mg 09/20/17 10:00 09/21/17 10:23 Nicoderm Patch - TD Not Given DAILY ENID Nicotine Polacrilex 2 mg 09/20/17 00:46 09/21/17 10:26 Nicorette Gum - BC 2 mg Q2H PRN Administration NICOTINE REPLACEMENT RX Multivit/Folic Acid/Iron 1 tab 09/20/17 10:00 09/21/17 10:23 Vitamins (Sjr) - PO 1 tab DAILY ENID Administration Pseudoephedrine/Triprolidine 1 combo 09/20/17 00:46 Actifed - PO TID PRN NASAL CONGESTION Quetiapine Fumarate 100 mg 09/20/17 22:00 09/20/17 22:08 Seroquel - PO Not Given HS ENID Thiamine HCl 100 mg 09/20/17 22:00 09/20/17 22:08 Vitamin B1 - PO 100 mg HS ENID Administration Medication(s) Change(s): Yes. Will add Zoloft 50mg. Current Side Effect: No Lab tests ordered: Yes (Will order depakote level. ) Lab tests reviewed: Yes Provider note:: [employer] Administrator approached patient concerning psychiatric reconsultation. Pt. requesting to restart wellbutrin and zoloft. As per pharmacy claims patient's most recent psychotrophic medications prescriptions were zoloft 100mg on 08/13/17, Depakote 250mg BID 08/29/17 (history of seizures) and Seroquel 100mg on 08/29/17. Most recent Wellbutrin 150mg XR prescription was given to patient on 11/2016. Pt. reports medication nonadherence. Today patient presents much more alert then yesterday and is able to answer most questions although is still complaining of feeling "blurry" because she was out on the streets. Pt. able to accept seroquel 100mg without any complaints of dizziness or oversedation. Will increase seroquel to 150mg per patient's request and zoloft 50mg PO daily to be started tomorrow morning. Total face to face time:: 25 Mental Status Exam - Mental Status Exam Alert and Oriented to: Time, Place, Person Cognitive Function: Good Patient Appearance: Well Groomed Mood: Sad, Euthymic Affect: Mood Congruent Patient Behavior: Appropriate, Cooperative Speech Pattern: Clear, Appropriate Voice Loudness: Normal Thought Process: Goal Oriented Thought Disorder: Not Present Hallucinations: Denies Suicidal Ideation: Denies Homicidal Ideation: Denies Insight/Judgement: Poor Sleep: Fair Appetite: Fair Muscle strength/Tone: Normal Gait/Station: Normal Psychiatric Treatment Plan - Problem List (1) Alcohol dependence with uncomplicated withdrawal Current Visit: Yes (2) Drug-induced mood disorder Current Visit: Yes (3) Nicotine dependence Current Visit: Yes Qualifiers: Nicotine product type: cigarettes Substance use status: uncomplicated Qualified Code(s): F17.210 - Nicotine dependence, cigarettes, uncomplicated (4) Schizoaffective disorder Current Visit: Yes Comment: History. Noncompliant with medications.
[2017-09-21] MEDS: THIAMINE HCL 100 MG TABLET (FP) PO SCH (22:10)
[2017-09-21] MEDS: QUEtiapine FUMARATE 50 MG TABLET PO SCH (22:11)
[2017-09-22] MEDS: chlordiazePOXIDE 5 MG CAPSULE PO SCH ×4 (06:19→22:17)
[2017-09-22] MEDS: DIVALPROEX SODIUM 250 MG TABLET E.C. PO SCH ×2 (10:24→22:17)
[2017-09-22] MEDS: CALCIUM (OYSTER SHELL) 500 MG TABLET (FP) PO SCH ×2 (10:24→22:18)
[2017-09-22] MEDS: PRENATAL VITAMINS W/ FOLIC ACID TABLET (FP) PO SCH (10:24)
[2017-09-22] MEDS: NICOTINE 14 MG/24 HOURS TOPICAL PATCH TD SCH (10:24)
[2017-09-22] MEDS: SERTRALINE HCL 50 MG TABLET (FP) PO SCH (10:25)
[2017-09-22] MEDS: NICOTINE POLACRILEX 2 MG GUM BC PRN ×3 (10:28→23:04)
--- NOTE | 2017-09-22 11:05 | PN ---
BHS Progress Note (SOAP) Subjective: ALERT,INTERRUPTED SLEEP Objective: 09/22/17 11:03 Vital Signs Temperature 98.2 F 09/22/17 11:01 Pulse Rate 18 L 09/22/17 11:01 Respiratory Rate 67 H 09/22/17 11:01 Blood Pressure 102/77 09/22/17 11:01 O2 Sat by Pulse Oximetry (%) Assessment: 09/22/17 11:03 WITHDRAWAL SYMPTOM 09/22/17 11:03 Plan: CONTINUE DETOX,DISCHARGE IN AM
[2017-09-22] MEDS: QUEtiapine FUMARATE 50 MG TABLET PO SCH (22:17)
[2017-09-22] MEDS: THIAMINE HCL 100 MG TABLET (FP) PO SCH (22:17)
[2017-09-23] MEDS: chlordiazePOXIDE HCL 10 MG CAPSULE PO SCH ×2 (05:14→10:41)
[2017-09-23] MEDS: NICOTINE POLACRILEX 2 MG GUM BC PRN (08:58)
--- NOTE | 2017-09-23 09:19 | PN ---
S Progress Note (SOAP) Subjective: ALERT,NO COMPLAINT Objective: 09/23/17 09:17 Vital Signs Temperature 97.5 F L 09/23/17 06:00 Pulse Rate 56 L 09/23/17 06:00 Respiratory Rate 16 09/23/17 06:00 Blood Pressure 100/63 09/23/17 06:00 O2 Sat by Pulse Oximetry (%) Assessment: 09/23/17 09:18 DETOX COMPLETED,NO WITHDRAWAL SYMPTOM Plan: FOLLOW UP WITH AFTER CARE PROGRAM ARRANGEMENT
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
[2017-09-23] MEDS: PRENATAL VITAMINS W/ FOLIC ACID TABLET (FP) PO SCH (09:36)
[2017-09-23] MEDS: CALCIUM (OYSTER SHELL) 500 MG TABLET (FP) PO SCH (09:36)
[2017-09-23] MEDS: SERTRALINE HCL 50 MG TABLET (FP) PO SCH (09:36)
[2017-09-23] MEDS: NICOTINE 14 MG/24 HOURS TOPICAL PATCH TD SCH (09:36)
[2017-09-23] MEDS: DIVALPROEX SODIUM 250 MG TABLET E.C. PO SCH (09:36)
[2017-09-23 10:16] VITALS: BP 110/60; PULSE 61; TEMP 97.3
[2017-09-23 15:30] LABS: URINE APPEARANCE CLOUDY; URINE BILIRUBIN NEGATIVE (<2.0 mg/dL); URINE BLOOD NEGATIVE (NEGATIVE); URINE COLOR YELLOW; URINE GLUCOSE (UA) NEGATIVE (NEGATIVE); URINE KETONE NEGATIVE (NEGATIVE); URINE LEUK ESTERASE TRACE (NEGATIVE); URINE NITRITE NEGATIVE (NEGATIVE); URINE PROTEIN NEGATIVE (NEGATIVE); URINE UROBILINOGEN NEGATIVE mg/dL (0.2-1.0)
[2017-09-23 15:52] LABS: CALCIUM OXALATE CRYSTALS RARE /hpf (NONE SEEN); EPI CELLS FEW /HPF (FEW); URINE BACTERIA FEW /hpf (NONE SEEN); URINE MUCUS MANY
== END 2017-09-23 12:28 | disposition other institution (70) | DRG 774 ==
LOC: YASAS 22:21 → Y6N 23:22
PROVIDERS: ADMIT Internal Medicine; ATTEND Internal Medicine
PROC: HZ2ZZZZ Detoxification Services for Substance Abuse Treatment (ICD-10-PCS; principal; 2017-09-19)
DX: F10.230 Alcohol dependence with withdrawal, uncomplicated (principal); F14.20 Cocaine dependence, uncomplicated; F12.20 Cannabis dependence, uncomplicated; F17.210 Nicotine dependence, cigarettes, uncomplicated; F31.9 Bipolar disorder, unspecified; F43.10 Post-traumatic stress disorder, unspecified; F41.9 Anxiety disorder, unspecified; F19.24 Other psychoactive substance dependence with psychoactive substance-induced mood disorder; F25.9 Schizoaffective disorder, unspecified; F64.0 Transsexualism; J45.909 Unspecified asthma, uncomplicated; K21.9 Gastro-esophageal reflux disease without esophagitis; R26.89 Other abnormalities of gait and mobility; Z99.89 Dependence on other enabling machines and devices; Z59.0 Homelessness
CPT/HCPCS: 36415; 80053; 80164; 81003; 81015; 85027; 86593; 93005; 93010

== ENCOUNTER 2017-09-23 11:28 | Inpatient (IN) | payer OTHER ==
[2017-09-23] MEDS ORDERED: MAGNESIUM HYDROX 2400MG/30ML ORAL SUSPENSION 30 ML CUP PO PRN (13:52)
[2017-09-23] MEDS ORDERED: hydrOXYzine PAMOATE 50 MG CAPSULE (FP) PO PRN (13:52)
[2017-09-23] MEDS ORDERED: P-EPHED 60MG/TRIPROLIDI 2.5MG TABLET PO PRN (13:52)
[2017-09-23] MEDS ORDERED: LOPERAMIDE HCL 2 MG CAPSULE PO PRN (13:52)
[2017-09-23] MEDS ORDERED: guaiFENesin/D-METHORPHAN HB 10 ML UNIT-DOSE CUPS PO PRN (13:52)
[2017-09-23] MEDS ORDERED: ACETAMINOPHEN 325 MG TABLET (FP) PO PRN (13:52)
[2017-09-23] MEDS ORDERED: MAG HYDROX/AL HYDROX/SIMETH 30 ML UNIT-DOSE CUP PO PRN (13:52)
[2017-09-23] MEDS ORDERED: MAGNESIUM CITRATE 300 ML BOTTLE PO PRN (13:52)
[2017-09-23] MEDS ORDERED: MENTHOL/PHENOL 1 EACH UD MM PRN (13:52)
[2017-09-23] MEDS ORDERED: ALBUTEROL SO4 18 GM HFA INHALER IH PRN (13:53)
[2017-09-23] MEDS ORDERED: GABAPENTIN 100 MG CAPSULE (FP) PO SCH ×2 (14:00→14:32)
[2017-09-23] MEDS ORDERED: ESTROGENS,CONJUGATED 25 MG VIAL IM SCH (14:00)
--- NOTE | 2017-09-23 15:09 | HP ---
[facility] Rehab Assess/Revision - Admission History Admitted to Rehab from: [facility] [place] Date of Admission to Rehab: 09/23/17 - Findings Detox History & Physical reviewed: Yes Concur with findings: Yes Comments/Additional Findings: FOR REHAB PROTOCOL Inpatient Rehab Admission - Initial Determination Are CD services needed?: Yes Free of communicable disease: Yes Not in need of hospitalization: Yes - Rehab Admission Criteria Previous failed treatment: Yes Poor recovery environment: Yes Comorbidities: Yes Lacks judgement: No Patient is meeting Inpatient Rehab admission criteria:: Yes
--- NOTE | 2017-09-23 16:20 | HP ---
Psychiatrist Admission - Data Date of interview: 09/23/17 Admission source: [address] [place] [address] Identifying data: This is the first admission to [address] [place] [address] for this 42 years old single childless female,homeless,no financial support. Medical History: [place] ADAMSON leg surgery(3),ambulates with cane. Psychiatric History: Patient reports long psychiatric history,starting since childhood due to behavioral problems.She was placed on Celexa .Patient reports a few psychiatric admissions ,no suicidal attempts.Patient was seen by psychiatrist at [facility].She was on Wellbutrin XL 150 mg po am, Seroquel 100 mg po bid plus 300 mg po hs,DepAKOTE 250 MG PO BID,Trazodone 150 mg po hs. Physical/Sexual Abuse/Trauma History: Patient is not willing to discuss this issue. Allergies/Adverse Reactions: Allergies Allergy/AdvReac Type Severity Reaction Status Date / Time pork derived (porcine) Allergy Intermediate Rash Verified 09/19/17 22:50 aspirin AdvReac Severe NOSEBLEED Verified 09/19/17 22:50 ibuprofen AdvReac Severe nosebleed Verified 09/19/17 22:50 Date of last physical exam: 09/19/17 Concur with the findings of this exam: Yes - Substance Abuse/Tx History Hx Alcohol Use: Yes (drinking since 9 yo,1 pint of vodka,2 six packs of beer) Hx Substance Use: Yes Substance Use Type: Alcohol, Cocaine (marijuana since 15 yo,4 bags daily, cocaine since 15 yo,4 bags daily), Marijuana Hx Substance Use Treatment: Yes Mental Status Exam - Mental Status Exam Alert and Oriented to: Time, Place, Person Cognitive Function: Grossly Intact Patient Appearance: Well Groomed Mood: Euthymic Affect: Mood Congruent Patient Behavior: Cooperative Speech Pattern: Clear Voice Loudness: Normal Thought Process: Goal Oriented Thought Disorder: Not Present Hallucinations: Denies Suicidal Ideation: Denies Homicidal Ideation: Denies Insight/Judgement: Fair Sleep: Fair Appetite: Good Muscle strength/Tone: Normal Gait/Station: Normal Psychiatric Findings - Problem List ([place] 1, 2,3) (1) Left knee injury Status: Chronic (2) Asthma Status: Chronic (3) Bipolar disorder Status: Chronic (4) Cannabis dependence, uncomplicated Status: Chronic (5) Alcohol dependence Status: Chronic (6) GERD (gastroesophageal reflux disease) Status: Chronic (7) Sysq-pq-[id number] transgender person Status: Chronic (8) Nicotine dependence Status: Chronic Qualifiers: Nicotine product type: cigarettes Substance use status: uncomplicated Qualified Code(s): F17.210 - Nicotine dependence, cigarettes, uncomplicated (9) PTSD (post-traumatic stress disorder) Status: Chronic (10) Seizures Status: Chronic - Initial Treatment Plan Initial Treatment Plan: Depakote 250 mg po bid,Wellbutrin XL 150 mg po am, Seroquel 100 mg po bid and 200 mg po hs.
[2017-09-23 16:43] VITALS: BP 100/68; PULSE 67; TEMP 97
[2017-09-23] MEDS ORDERED: ESTROGENS,CONJUGATED 25 MG VIAL IM ONE (17:00)
[2017-09-23] MEDS ORDERED: PT OWN MED DRAWER 7, Y5N ONE (17:21)
[2017-09-23] MEDS ORDERED: NICOTINE POLACRILEX 4 MG GUM BUC PRN (20:41)
[2017-09-23] MEDS ORDERED: MELATONIN 5 MG TABLETS PO PRN (22:00)
[2017-09-23] MEDS ORDERED: CALCIUM (OYSTER SHELL) 500 MG TABLET (FP) PO SCH (22:00)
[2017-09-23] MEDS ORDERED: THIAMINE HCL 100 MG TABLET (FP) PO SCH (22:00)
[2017-09-23] MEDS ORDERED: DIVALPROEX SODIUM 250 MG TABLET E.C. PO SCH (22:00)
[2017-09-23] MEDS ORDERED: QUEtiapine FUMARATE 100 MG TABLET (FP) PO SCH (22:00)
[2017-09-23] MEDS ORDERED: traZODone HCL 50 MG TABLET (FP) PO SCH (22:00)
--- NOTE | 2017-09-23 22:20 | PN ---
[facility] Progress Note Note: Psychiatry Attending's application performance engineer note : Called by nurse. Informed that the patient left the unit. See staff's notes for details.
--- NOTE | 2017-09-23 22:57 | PN ---
[facility] Progress Note Note: I was called by Ms. Lolita LYNN to see a patient who was leaving against medical advice. Patient states that she has an important family issue to address and that it is pertinent that she go home to address the problem. Patient is medically stable to leave. No withdrawal symptoms, pain or discomfort noted or reported. Vital signs stable. Risks and consequences of leaving against medical advice and not completing rehabilitation reinforced. Patient signed the AMA form and left.
[2017-09-24] MEDS ORDERED: SPIRONOLACTONE 25 MG TABLET (FP) PO SCH (10:00)
[2017-09-24] MEDS ORDERED: PRENATAL VITAMINS W/ FOLIC ACID TABLET (FP) PO SCH (10:00)
[2017-09-24] MEDS ORDERED: QUEtiapine FUMARATE 100 MG TABLET (FP) PO SCH (10:00)
[2017-09-24] MEDS ORDERED: NICOTINE 14 MG/24 HOURS TOPICAL PATCH TD SCH (10:00)
== END 2017-09-23 21:30 | disposition left against medical advice (07) | DRG 770 ==
LOC: YASAS 11:28 → Y3E 11:29
PROVIDERS: ADMIT Psychiatry & Neurology Psychiatry; ATTEND Psychiatry & Neurology Psychiatry
PROC: HZ42ZZZ Group Counseling for Substance Abuse Treatment, Cognitive-Behavioral (ICD-10-PCS; principal; 2017-09-23)
DX: F10.230 Alcohol dependence with withdrawal, uncomplicated (principal); F14.20 Cocaine dependence, uncomplicated; F12.20 Cannabis dependence, uncomplicated; F17.210 Nicotine dependence, cigarettes, uncomplicated; F31.9 Bipolar disorder, unspecified; F41.9 Anxiety disorder, unspecified; F43.10 Post-traumatic stress disorder, unspecified; F64.0 Transsexualism; F25.9 Schizoaffective disorder, unspecified; F19.24 Other psychoactive substance dependence with psychoactive substance-induced mood disorder; J45.909 Unspecified asthma, uncomplicated; Z99.89 Dependence on other enabling machines and devices; R26.89 Other abnormalities of gait and mobility; Z59.0 Homelessness

== ENCOUNTER 2017-12-07 16:49 | Inpatient (IN) | payer OTHER ==
[2017-12-07 18:47] VITALS: BMI 18.3
--- NOTE | 2017-12-07 18:48 | HP ---
CIWA Score - CIWA Score Nausea/Vomitin Muscle Tremors: 2 Anxiety: 3 Agitation: 3 Paroxysmal Sweats: 1-Minimal Palms Moist Admission ROS [facility] Chief Complaint: withdrawal symptoms Allergies/Adverse Reactions: Allergies Allergy/AdvReac Type Severity Reaction Status Date / Time pork derived (porcine) Allergy Intermediate Rash Verified 12/07/17 18:33 aspirin AdvReac Severe NOSEBLEED Verified 12/07/17 18:33 ibuprofen AdvReac Severe nosebleed Verified 12/07/17 18:33 History of Present Illness: 42 years old transgender male with 20 years of alcohol, heroin , cocaine and marijuana dependence is seeking admission to detox. Patient has been in previous detox and reports insignificant period of sobriety. Utox; THC, EMMA. PMHX: asthma, seizures, depression, PSTD, ADHD, schizophernia, GERD and anxiety. He denies suicide attempt and suicidal ideation at this time. Last detox at [facility] 09/19/17 -09/23/17. Reports last seizure 3 years ago. Patient prefers to be called Ms. Choi. Reports no significant period of sobriety. Exam Limitations: No Limitations - Ebola screening Have you traveled outside of the country in the last 21 days: No Have you had contact with anyone from an Ebola affected area: No Do you have a fever: No Patient History - Patient Medical History Hx Anemia: No Hx Asthma: Yes (ON PUMP) Hx Chronic Obstructive Pulmonary Disease (COPD): No Hx Cancer: No Hx Cardiac Disorders: No Hx Congestive Heart Failure: No Hx Hypertension: No Hx Hypercholesterolemia: No Hx Pacemaker: No HX Cerebrovascular Accident: No Hx Seizures: Yes (DRUG RELATED 2 WEEKS AGO) Hx Dementia: No Hx Diabetes: No Hx Gastrointestinal Disorders: No Hx Liver Disease: No Hx Genitourinary Disorders: No Hx Sexually Transmitted Disorders: No Hx Renal Disease (ESRD): No Hx Thyroid Disease: No Hx Human Immunodeficiency Virus (HIV): No Hx Hepatitis C: No Hx Depression: Yes Hx Suicide Attempt: No Hx Bipolar Disorder: Yes (Seroquel, trazodone) Hx Schizophrenia: Yes - Patient Surgical History Past Surgical History: Yes Hx Neurologic Surgery: No Hx Cataract Extraction: No Hx Cardiac Surgery: No Hx Lung Surgery: No Hx Breast Surgery: No Hx Breast Biopsy: No Hx Abdominal Surgery: No Hx Appendectomy: No Hx Cholecystectomy: No Hx Genitourinary Surgery: No Hx Section: No Hx Orthopedic Surgery: Yes (FX OF LEFT LOWER LEG) Other Surgical History: fx, left mandible at age 17 Anesthesia Reaction: No - PPD History Previous Implant?: Yes Documented Results: Negative w/proof Implanted On Prior [facility] Admission?: Yes Date: 12/09/16 Results: 0mm - Reproductive History Last Menstrual Period: 02/23/12 - Smoking Cessation Smoking history: Current every day smoker Have you smoked in the past 12 months: No Aproximately how many cigarettes per day: 40 Cigars Per Day: 0 Hx Chewing Tobacco Use: No - Substances Abused Alcohol Route: Oral Frequency: Daily Amount used: $6- VODKA BEERS Age of first use: 7 Date of Last Use: 12/07/17 Heroin Route: Injection Frequency: 3-6 times per week Amount used: 10BAGS Age of first use: 17 Date of Last Use: 12/05/17 Marijuana/Hashish Route: Smoking Frequency: Daily Amount used: $5 Age of first use: 9 Date of Last Use: 12/07/17 Cocaine Route: Smoking Frequency: Daily Amount used: 10BAGS Age of first use: 9 Date of Last Use: 12/07/17 Family Disease History - Family Disease History Family Disease History: Heart Disease: Grandparent, [place]: Grandparent, Mother ( HIV +, Anal cancer, alcoholic), Respiratory: Sister, Other: Father (Bipolar, alcoholic), Mother, Brother (Depression) [facility] Breath Alcohol Content Breath Alcohol Content: 0
--- NOTE | 2017-12-07 20:08 | HP ---
CIWA Score - CIWA Score Nausea/Vomitin Muscle Tremors: 4-Moderate,w/Arms Extend Anxiety: 3 Agitation: 3 Paroxysmal Sweats: 2 Orientation: 1-Uncertain about Date Tacttile Disturbances: 0-None Auditory Disturbances: 0-None Visual Disturbances: 0-None Headache: 3-Moderate CIWA-Ar Total Score: 18 Admission [facility] Chief Complaint: Alcohol withdrawal symptoms Allergies/Adverse Reactions: Allergies Allergy/AdvReac Type Severity Reaction Status Date / Time pork derived (porcine) Allergy Intermediate Rash Verified 12/07/17 18:33 aspirin AdvReac Severe NOSEBLEED Verified 12/07/17 18:33 ibuprofen AdvReac Severe nosebleed Verified 12/07/17 18:33 History of Present Illness: 42 years old transgender male with 20 years of alcohol, heroin , cocaine and marijuana dependence is seeking admission to detox. Patient has been in previous detox and reports insignificant period of sobriety. He has past medical history of asthma, seizures, depression, PSTD, ADHD, schizophernia, GERD and anxiety. He denies suicide attempt and suicidal ideation at this time. Last detox at [facility] 09/19/17 -09/23/17. Reports last seizure 3 years ago. Patient prefers to be called Lily Steph. Drug screen was positive for marijuana and cocaine. Exam Limitations: No Limitations - Ebola screening Have you traveled outside of the country in the last 21 days: No Have you had contact with anyone from an Ebola affected area: No Have you been sick,other than usual withdrawal symptoms: No Do you have a fever: No - Review of Systems Constitutional: Chills, Loss of Appetite, Malaise, Night Sweats, Changes in sleep, Weakness, Unintentional Wgt. Loss (reports 20 pounds weight loss) EENT: reports: No Symptoms Reported Respiratory: reports: No Symptoms reported Cardiac: reports: No Symptoms Reported GI: reports: Nausea, Poor Appetite, Poor Fluid Intake, Abdominal cramping : reports: No Symptoms Reported Musculoskeletal: reports: Back Pain, Joint Pain, Muscle Pain, Other ( generalized body aches and pain) Integumentary: reports: Dryness, Flushing Neuro: reports: Headache, Tremors, Dizziness Endocrine: reports: No Symptoms Reported Hematology: reports: No Symptoms Reported Psychiatric: reports: Anxious, Depressed Other Systems: Reviewed and Negative Patient History - Patient Medical History Hx Anemia: No Hx Asthma: Yes (Albuterol) Hx Chronic Obstructive Pulmonary Disease (COPD): No Hx Cancer: No Hx Cardiac Disorders: No Hx Congestive Heart Failure: No Hx Hypertension: No Hx Hypercholesterolemia: No Hx Pacemaker: No HX Cerebrovascular Accident: No Hx Seizures: Yes (6 months ago) Hx Dementia: No Hx Diabetes: No Hx Gastrointestinal Disorders: No Hx Liver Disease: No Hx Genitourinary Disorders: No Hx Sexually Transmitted Disorders: No Hx Renal Disease (ESRD): No Hx Thyroid Disease: No Hx Human Immunodeficiency Virus (HIV): No (Negative 2013) Hx Hepatitis C: No Hx Depression: Yes (Depakote, Seroquel, Xanax, Alcova) Hx Suicide Attempt: No (Denies suicide attempt and suicidal ideation) Hx Bipolar Disorder: Yes (Depakote, Seroquel, Xanax, Alcova) Hx Schizophrenia: Yes (Depakote, Seroquel, Xanax, Alcova) Other Medical History: Anxiety, manic depression, PTSD, Insomnia, Paranoia- Depakote, Seroquel, [place] - Patient Surgical History Past Surgical History: Yes Hx Neurologic Surgery: No Hx Cataract Extraction: No Hx Cardiac Surgery: No Hx Lung Surgery: No Hx Breast Surgery: No Hx Breast Biopsy: No Hx Abdominal Surgery: No Hx Appendectomy: No Hx Cholecystectomy: No Hx Genitourinary Surgery: No Hx Section: No Hx Orthopedic Surgery: Yes (FX OF LEFT LOWER LEG) Other Surgical History: fx, left mandible at age 17 Anesthesia Reaction: No - PPD History Previous Implant?: Yes Documented Results: Negative w/proof Implanted On Prior [facility] Admission?: Yes Date: 12/09/16 Results: 0mm PPD to be Administered?: Yes - Reproductive History Last Menstrual Period: 02/23/12 LMP comment: Transgender male. Prefers to be called Ms. Choi - Smoking Cessation Smoking history: Current every day smoker Have you smoked in the past 12 months: Yes Aproximately how many cigarettes per day: 40 Cigars Per Day: 0 Hx Chewing Tobacco Use: No Initiated information on smoking cessation: Yes 'Breaking Loose' booklet given: 12/07/17 - Substance & Tx. History Hx Alcohol Use: Yes Hx Substance Use: Yes Substance Use Type: Alcohol, Cocaine, Marijuana Hx Substance Use Treatment: Yes ([facility]) - Substances Abused Alcohol Route: Oral Frequency: Daily Amount used: $25- VODKA BEERS Age of first use: 7 Date of Last Use: 12/07/17 Heroin Route: Injection Frequency: 3-6 times per week Amount used: 10 BAGS Age of first use: 17 Date of Last Use: 12/05/17 Marijuana/Hashish Route: Smoking Frequency: Daily Amount used: $5 Age of first use: 9 Date of Last Use: 12/07/17 Cocaine Route: Smoking Frequency: Daily Amount used: 10 BAGS Age of first use: 9 Date of Last Use: 12/07/17 Family Disease History - Family Disease History Family Disease History: Heart Disease: Grandparent, [place]: Grandparent, Mother ( HIV +, Anal cancer, alcoholic), Respiratory: Sister, Other: Father (Bipolar, alcoholic), Mother, Brother (Depression) Admission Physical Exam [facility] - Vital Signs Vital Signs: Vital Signs - 24 hr 12/07/17 18:41 Temperature 99 F Pulse Rate 99 H Respiratory 20 Rate Blood Pressure 133/85 - Physical General Appearance: Yes: Moderate Distress, Thin, Tremorous, Irritable, Anxious HEENTM: Yes: EOMI, Normal ENT Inspection, Normocephalic, Normal Voice, DICK Respiratory: Yes: Wheezing Neck: Yes: Supple Breast: Yes: Breast Exam Deferred Cardiology: Yes: Tachycardia Abdominal: Yes: Normal Bowel Sounds, Soft Genitourinary: Yes: Within Normal Limits Back: Yes: Normal Inspection Musculoskeletal: Yes: Back pain, Muscle Pain, Muscle weakness Extremities: Yes: Tremors, Swelling Neurological: Yes: Normal Mood/Affect Integumentary: Yes: Dry Lymphatic: Yes: Within Normal Limits - Diagnostic (1) Alcohol dependence with uncomplicated withdrawal Current Visit: Yes Status: Chronic (2) Asthma Current Visit: Yes Status: Chronic (3) Cannabis dependence, uncomplicated Current Visit: Yes Status: Chronic (4) Cocaine dependence, uncomplicated Current Visit: Yes Status: Chronic (5) GERD (gastroesophageal reflux disease) Current Visit: Yes Status: Chronic (6) Aijl-tl-ghzolz transgender person Current Visit: Yes Status: Chronic (7) Nicotine dependence Current Visit: Yes Status: Chronic Qualifiers: Nicotine product type: cigarettes Substance use status: uncomplicated Qualified Code(s): F17.210 - Nicotine dependence, cigarettes, uncomplicated (8) Seizures Current Visit: Yes Status: Chronic Cleared for Admission [facility] - Detox or Rehab [facility] Level of Care: Medically Managed Detox Regimen/Protocol: Librium [facility] Breath Alcohol Content Breath Alcohol Content: 0 Urine Pregancy Test - Result Urine Test Results: Negative- NO Line Present Urine Drug Screen - Results Drug Screen Negative: No Urine Drug Screen Results: THC-Marijuana, EMMA-Cocaine
[2017-12-07] MEDS ORDERED: guaiFENesin/D-METHORPHAN HB 10 ML UNIT-DOSE CUPS PO PRN (20:38)
[2017-12-07] MEDS ORDERED: P-EPHED 60MG/TRIPROLIDI 2.5MG TABLET PO PRN (20:38)
[2017-12-07] MEDS ORDERED: chlordiazePOXIDE HCL 25 MG CAPSULE PO PRN (20:38)
[2017-12-07] MEDS ORDERED: MAGNESIUM CITRATE 300 ML BOTTLE PO PRN (20:38)
[2017-12-07] MEDS ORDERED: MAG HYDROX/AL HYDROX/SIMETH 30 ML UNIT-DOSE CUP PO PRN (20:38)
[2017-12-07] MEDS ORDERED: MAGNESIUM HYDROX 2400MG/30ML ORAL SUSPENSION 30 ML CUP PO PRN (20:38)
[2017-12-07] MEDS ORDERED: LOPERAMIDE HCL 2 MG CAPSULE PO PRN (20:38)
[2017-12-07] MEDS ORDERED: ACETAMINOPHEN 325 MG TABLET (FP) PO PRN (20:38)
[2017-12-07] MEDS ORDERED: MENTHOL/PHENOL 1 EACH UD MM PRN (20:38)
[2017-12-07] MEDS ORDERED: ALBUTEROL SO4 18 GM HFA INHALER IH PRN (20:41)
[2017-12-07] MEDS ORDERED: MELATONIN 5 MG TABLETS PO PRN (22:00)
[2017-12-07] MEDS: THIAMINE HCL 100 MG TABLET (FP) PO SCH (22:45)
[2017-12-07] MEDS: chlordiazePOXIDE HCL 25 MG CAPSULE PO SCH (22:45)
[2017-12-08 00:09] LABS: URINE APPEARANCE CLEAR; URINE BILIRUBIN NEGATIVE (<2.0 mg/dL); URINE COLOR LTYELLOW; URINE GLUCOSE (UA) NEGATIVE (NEGATIVE); URINE KETONE NEGATIVE (NEGATIVE); URINE LEUK ESTERASE NEGATIVE (NEGATIVE); URINE NITRITE NEGATIVE (NEGATIVE); URINE PROTEIN NEGATIVE (NEGATIVE); URINE UROBILINOGEN NEGATIVE mg/dL (0.2-1.0)
[2017-12-08] MEDS: chlordiazePOXIDE HCL 25 MG CAPSULE PO SCH ×4 (09:29→22:49)
[2017-12-08 10:17] LABS: HEMATOCRIT 34.4 % (35.4-49); HEMOGLOBIN 11.6 GM/dL (11.7-16.9); MCH 29.2 pg (25.7-33.7); MCHC 33.9 g/dl (32.0-35.9); MEAN PLT VOLUME 7.7 fl (7.5-11.1); PLATELET COUNT 408 K/MM3 (134-434); RBC 3.99 M/mm3 (4.00-5.60); RDW 16.2 % (11.9-15.9)
--- NOTE | 2017-12-08 10:55 | CONSULT ---
[facility] Psychiatric Consult - Data Date of interview: 12/08/17 Admission source: [facility] Identifying data: This is 42 years old transgender male to female, single, homeless, on PA, with 20 years history of alcohol dependence, , heroin , cocaine and marijuana dependence is seeking admission to detox. Reports withadrawal symptoms. Patient reports history of Bipolar disorder, PTSD, history of psychiatric hospitalizations, denies suicidal, homicidal history Substance Abuse History: Smoking Cessation. Smoking history: Current every day smoker. Have you smoked in the past 12 months: Yes. Aproximately how many cigarettes per day: 40. Cigars Per Day: 0. Hx Chewing Tobacco Use: No. Initiated information on smoking cessation: Yes. 'Breaking Loose' booklet given : 12/07/17. - Substance & Tx. History. Hx Alcohol Use: Yes. Hx Substance Use : Yes. Substance Use Type: Alcohol, Cocaine, Marijuana. Hx Substance Use Treatment: Yes ([facility]). - Substances Abused. Alcohol. Route: Oral. Frequency: Daily. Amount used: $25- VODKA BEERS. Age of first use: 7. Date of Last Use: 12/07/17. Heroin. Route: Injection. Frequency: 3-6 times per week. Amount used: 10 BAGS. Age of first use: 17. Date of Last Use: . Marijuana/Hashish. Route: Smoking. Frequency: Daily. Amount used: $ 5. Age of first use: 9. Date of Last Use: 12/07/17. Cocaine. Route: Smoking. Frequency: Daily. Amount used: 10 BAGS. Age of first use: 9. Date of Last Use: 12/07/17 Medical History: Asthma, GERD, Seizure history Psychiatric History: Rebecca huang Bipolar Disorder history with most recent psychiatric admission on about 5 years ago at [facility]. Reports currently stable on: Depakote 250mg po bid. Wellbutrin XL 150mg poqd. Seroquel 100mg po0 bid at 10am and 4pm. Seroquel 300mg po qhs. Trazodone 150mg po qhs Physical/Sexual Abuse/Trauma History: Unclear Additional Comment: Depakote 250mg po bid. Wellbutrin XL 150mg poqd. Seroquel 100mg po0 bid at 10am and 4pm. Seroquel 300mg po qhs. Trazodone 150mg po qhs Mental Status Exam - Mental Status Exam Alert and Oriented to: Person Cognitive Function: Fair Patient Appearance: Unkempt Mood: Anxious, Irritable Affect: Mood Congruent Patient Behavior: Impulsive, Appropriate, Cooperative Speech Pattern: Appropriate Voice Loudness: Mildly Soft/Quiet Thought Process: Goal Oriented Thought Disorder: Being Controlled Hallucinations: Denies Suicidal Ideation: Denies Homicidal Ideation: Denies Insight/Judgement: Fair Sleep: Difficulty falling asleep Appetite: Fair Muscle strength/Tone: Normal Gait/Station: Normal Additional Comments: Depakote 250mg po bid. Wellbutrin XL 150mg poqd. Seroquel 100mg po0 bid at 10am and 4pm. Seroquel 300mg po qhs. Trazodone 150mg po qhs Psychiatric Findings - Problem List ([place] 1, 2,3) (1) Alcohol dependence with uncomplicated withdrawal Current Visit: Yes Status: Chronic (2) Asthma Current Visit: Yes Status: Chronic (3) Cannabis dependence, uncomplicated Current Visit: Yes Status: Chronic (4) Cocaine dependence, uncomplicated Current Visit: Yes Status: Chronic (5) GERD (gastroesophageal reflux disease) Current Visit: Yes Status: Chronic (6) Tmef-wt-nqwxkb transgender person Current Visit: Yes Status: Chronic (7) Nicotine dependence Current Visit: Yes Status: Chronic Qualifiers: Nicotine product type: cigarettes Substance use status: uncomplicated Qualified Code(s): F17.210 - Nicotine dependence, cigarettes, uncomplicated (8) Seizures Current Visit: Yes Status: Chronic (9) Drug-induced mood disorder Current Visit: No Status: Acute (10) Alcohol dependence Current Visit: No Status: Chronic (11) Bipolar disorder Current Visit: No Status: Chronic (12) Left knee injury Current Visit: No Status: Chronic (13) Opioid dependence with withdrawal Current Visit: No Status: Chronic (14) PTSD (post-traumatic stress disorder) Current Visit: No Status: Chronic (15) Schizoaffective disorder Current Visit: No Status: Chronic Comment: History. Noncompliant with medications. - Initial Treatment Plan Initial Treatment Plan: Depakote 250mg po bid. Wellbutrin XL 150mg poqd. Seroquel 100mg po0 bid at 10am and 4pm. Seroquel 300mg po qhs. Trazodone 150mg po qhs. Blood Depakote level
--- NOTE | 2017-12-08 11:01 | PN ---
[facility] CIWA - CIWA Score Nausea/Vomitin-Mild Nausea/No Vomiting Muscle Tremors: 1-None Visible, but [place] Anxiety: 1-Mildly Anxious Agitation: 0-Normal Activity Paroxysmal Sweats: No Perspiration Orientation: 0-Oriented Tacttile Disturbances: 0-None Auditory Disturbances: 0-None Visual Disturbances: 0-None Headache: 0-None Present CIWA-Ar Total Score: 3 [facility] Progress Note (SOAP) Subjective: PATIENT ADMITTED LAST NIGHT FOR ETOH DETOX. STATES " I FEEL ALRIGHT. SOME MILD NAUSEA AND SHAKES". DENIES VOMITING, DIARRHEA AND SWEATING. Objective: 12/08/17 11:00 Vital Signs Temperature 97.9 F 12/08/17 09:31 Pulse Rate 60 12/08/17 09:31 Respiratory Rate 16 12/08/17 09:31 Blood Pressure 127/86 12/08/17 09:31 O2 Sat by Pulse Oximetry (%) Laboratory Tests 12/07/17 12/08/17 23:50 08:50 WBC 6.0 RBC 3.99 L D Hgb 11.6 L D Hct 34.4 L D MCV 86.0 MCH 29.2 MCHC 33.9 RDW 16.2 H Plt Count 408 MPV 7.7 Urine Color Ltyellow Urine Appearance Clear Urine pH 5.0 Ur Specific [place] 1.009 Urine Protein Negative Urine Glucose (UA) Negative Urine Ketones Negative Urine Blood Negative Urine Nitrite Negative Urine Bilirubin Negative Urine Urobilinogen Negative Ur Leukocyte Esterase Negative OBJ: SKIN: AFEBRILE, WARM AND DRY CAR:S1S2 RESP: CTA BL EXT: NO EDEMA, FULL ROM. MILD TREMORS FELT Assessment: 12/08/17 11:01 ETOH DETOX WITHDRAWAL SYNDROME Plan: CONTINUE CURRENT TREATMENT ORAL FLUIDS ENCOURAGED CONTINUE TO MONITOR CLINICALLY
--- NOTE | 2017-12-08 11:15 | EKG ---
Test Reason : Blood Pressure : / mmHG Vent. Rate : 075 BPM Atrial Rate : 075 BPM P-R Int : 164 ms QRS Dur : 108 ms QT Int : 374 ms P-R-T Axes : 067 025 050 degrees QTc Int : 417 ms NORMAL SINUS RHYTHM WITH SINUS ARRHYTHMIA INCOMPLETE RIGHT BUNDLE BRANCH BLOCK T WAVE ABNORMALITY, CONSIDER ANTERIOR ISCHEMIA ABNORMAL ECG WHEN COMPARED WITH ECG OF 20-SEP-2017 00:32, ST NO LONGER ELEVATED IN ANTERIOR LEADS T WAVE INVERSION NOW EVIDENT IN ANTERIOR LEADS Confirmed by LANDEN JAMES MD ([id number]) on 12/08/2017 11:15:30 AM Referred By: Confirmed By:LANDEN JAMES MD
[2017-12-08] MEDS: DIVALPROEX SODIUM 250 MG TABLET E.C. PO SCH ×2 (11:38→22:47)
[2017-12-08] MEDS: QUEtiapine FUMARATE 100 MG TABLET (FP) PO SCH ×2 (11:38→13:03)
[2017-12-08] MEDS: NICOTINE 14 MG/24 HOURS TOPICAL PATCH TD SCH (11:40)
[2017-12-08] MEDS: NICOTINE POLACRILEX 2 MG GUM BUC PRN (11:44)
[2017-12-08] MEDS: PRENATAL VITAMINS W/ FOLIC ACID TABLET (FP) PO SCH (12:01)
[2017-12-08 12:56] LABS: ALBUMIN 3.2 g/dl (3.4-5.0); ANION GAP 9 (8-16); BLOOD UREA NITROGEN 13 mg/dL (7-18); CALCIUM 8.6 mg/dL (8.5-10.1); CHLORIDE 109 mmol/L (98-107); CO2 25 mmol/L (21-32); CREATININE 0.8 mg/dL (0.7-1.3); GLUCOSE,RANDOM 91 mg/dL (74-106); POTASSIUM 3.9 mmol/L (3.5-5.1); SGOT/AST 15 U/L (15-37); SGPT/ALT 17 U/L (12-78); SODIUM 143 mmol/L (136-145)
[2017-12-08 12:58] LABS: ALK PHOS 55 U/L (45-117); BILIRUBIN,TOTAL 0.4 mg/dL (0.2-1.0); TOT PROT 6.5 g/dl (6.4-8.2)
[2017-12-08] MEDS: QUEtiapine FUMARATE 300 MG TABLET PO SCH (22:47)
[2017-12-08] MEDS: THIAMINE HCL 100 MG TABLET (FP) PO SCH (22:47)
[2017-12-08] MEDS: traZODone HCL 50 MG TABLET (FP) PO SCH (22:47)
[2017-12-09] MEDS: chlordiazePOXIDE HCL 25 MG CAPSULE PO SCH ×3 (05:00→18:30)
--- NOTE | 2017-12-09 09:49 | EKG ---
Test Reason : Blood Pressure : / mmHG Vent. Rate : 059 BPM Atrial Rate : 059 BPM P-R Int : 160 ms QRS Dur : 100 ms QT Int : 426 ms P-R-T Axes : 069 037 050 degrees QTc Int : 421 ms SINUS BRADYCARDIA OTHERWISE NORMAL ECG WHEN COMPARED WITH ECG OF 07-DEC-2017 22:04, T WAVE INVERSION NO LONGER EVIDENT IN ANTERIOR LEADS Confirmed by ADELINE RENDON MD ([id number]) on 12/09/2017 9:48:46 AM Referred By: Confirmed By:ADELINE RENDON MD
[2017-12-09] MEDS: QUEtiapine FUMARATE 100 MG TABLET (FP) PO SCH ×2 (11:15→14:30)
[2017-12-09] MEDS: PRENATAL VITAMINS W/ FOLIC ACID TABLET (FP) PO SCH (11:15)
[2017-12-09] MEDS: DIVALPROEX SODIUM 250 MG TABLET E.C. PO SCH ×2 (11:15→22:42)
[2017-12-09] MEDS: NICOTINE 14 MG/24 HOURS TOPICAL PATCH TD SCH (11:16)
--- NOTE | 2017-12-09 15:32 | PN ---
[facility] CIWA - CIWA Score Muscle Tremors: None Anxiety: 0-No Anxiety, at Ease Agitation: 0-Normal Activity Paroxysmal Sweats: No Perspiration Orientation: 0-Oriented Tacttile Disturbances: 0-None Auditory Disturbances: 0-None Visual Disturbances: 0-None Headache: 0-None Present
--- NOTE | 2017-12-09 15:35 | PN ---
[facility] Progress Note (SOAP) Subjective: Pt here for alcohol detox, pt resting comforatbly in bed- has no complaints, would like to go to rehab from detox Objective: 12/09/17 15:32 Vital Signs - 24 hr 12/08/17 12/08/17 12/09/17 17:32 21:53 00:30 Temperature 98.1 F 97.3 F L Pulse Rate 64 57 L Respiratory 18 6 L 18 Rate Blood Pressure 126/88 123/78 12/09/17 12/09/17 12/09/17 03:30 07:33 09:48 Temperature 97.2 F L 97.9 F Pulse Rate 64 66 Respiratory 18 16 16 Rate Blood Pressure 103/62 113/75 12/09/17 14:00 Temperature 98.1 F Pulse Rate 71 Respiratory 16 Rate Blood Pressure 110/73 Laboratory Tests 12/07/17 12/08/17 12/08/17 23:50 08:50 08:50 WBC 6.0 RBC 3.99 L D Hgb 11.6 L D Hct 34.4 L D MCV 86.0 MCH 29.2 MCHC 33.9 RDW 16.2 H Plt Count 408 MPV 7.7 Sodium 143 Potassium 3.9 Chloride 109 H Carbon Dioxide 25 Anion Gap 9 BUN 13 Creatinine 0.8 Creat Clearance w eGFR > 60 Random Glucose 91 Calcium 8.6 Total Bilirubin 0.4 AST 15 ALT 17 D Alkaline Phosphatase 55 D Total Protein 6.5 Albumin 3.2 L Urine Color Ltyellow Urine Appearance Clear Urine pH 5.0 Ur Specific [place] 1.009 Urine Protein Negative Urine Glucose (UA) Negative Urine Ketones Negative Urine Blood Negative Urine Nitrite Negative Urine Bilirubin Negative Urine Urobilinogen Negative Ur Leukocyte Esterase Negative Valproic Acid RPR Titer Hep C Ab Diagnostic Liver Fibrosis Interp HIV 1&2 Antibody Screen HIV P24 Antigen 12/08/17 12/08/17 12/08/17 08:50 09:18 13:00 WBC RBC Hgb Hct MCV MCH MCHC RDW Plt Count MPV Sodium Potassium Chloride Carbon Dioxide Anion Gap BUN Creatinine Creat Clearance w eGFR Random Glucose Calcium Total Bilirubin AST ALT Alkaline Phosphatase Total Protein Albumin Urine Color Urine Appearance Urine pH Ur Specific [place] Urine Protein Urine Glucose (UA) Urine Ketones Urine Blood Urine Nitrite Urine Bilirubin Urine Urobilinogen Ur Leukocyte Esterase Valproic Acid RPR Titer Nonreactive Hep C Ab Diagnostic <0.1 Liver Fibrosis Interp HIV 1&2 Antibody Screen Negative HIV P24 Antigen Negative 12/09/17 08:00 WBC RBC Hgb Hct MCV MCH MCHC RDW Plt Count MPV Sodium Potassium Chloride Carbon Dioxide Anion Gap BUN Creatinine Creat Clearance w eGFR Random Glucose Calcium Total Bilirubin AST ALT Alkaline Phosphatase Total Protein Albumin Urine Color Urine Appearance Urine pH Ur Specific [place] Urine Protein Urine Glucose (UA) Urine Ketones Urine Blood Urine Nitrite Urine Bilirubin Urine Urobilinogen Ur Leukocyte Esterase Valproic Acid 41.7 L RPR Titer Hep C Ab Diagnostic Liver Fibrosis Interp HIV 1&2 Antibody Screen HIV P24 Antigen nl VS and grossly nl PE Assessment: 12/09/17 15:34 pt doing well with detox protocol Plan: continue detox, pt would like to go to rehab at discharge
[2017-12-09] MEDS: traZODone HCL 50 MG TABLET (FP) PO SCH (22:42)
[2017-12-09] MEDS: QUEtiapine FUMARATE 300 MG TABLET PO SCH (22:42)
[2017-12-09] MEDS: THIAMINE HCL 100 MG TABLET (FP) PO SCH (22:42)
[2017-12-09] MEDS: chlordiazePOXIDE 5 MG CAPSULE PO SCH (23:03)
[2017-12-10] MEDS: chlordiazePOXIDE 5 MG CAPSULE PO SCH ×3 (05:24→18:11)
[2017-12-10] MEDS: PRENATAL VITAMINS W/ FOLIC ACID TABLET (FP) PO SCH (10:49)
[2017-12-10] MEDS: DIVALPROEX SODIUM 250 MG TABLET E.C. PO SCH ×2 (10:49→22:45)
[2017-12-10] MEDS: QUEtiapine FUMARATE 100 MG TABLET (FP) PO SCH ×2 (10:49→14:15)
[2017-12-10] MEDS: NICOTINE 14 MG/24 HOURS TOPICAL PATCH TD SCH (10:51)
--- NOTE | 2017-12-10 19:35 | PN ---
[facility] Progress Note (SOAP) Subjective: Sleep disturbance Sweats Shakes Generalized pain Objective: 12/10/17 19:34 A & O x 3 In bed Vital Signs Temperature 97.9 F 12/10/17 18:27 Pulse Rate 73 12/10/17 18:27 Respiratory Rate 18 12/10/17 18:27 Blood Pressure 135/71 12/10/17 18:27 O2 Sat by Pulse Oximetry (%) Assessment: 12/10/17 19:35 withdrawal sx Plan: continue detox continue prn pain meds
[2017-12-10] MEDS ORDERED: QUEtiapine FUMARATE 100 MG TABLET (FP) ONE (21:29)
[2017-12-10] MEDS: traZODone HCL 50 MG TABLET (FP) PO SCH (22:45)
[2017-12-10] MEDS: chlordiazePOXIDE HCL 10 MG CAPSULE PO SCH (22:45)
[2017-12-10] MEDS: THIAMINE HCL 100 MG TABLET (FP) PO SCH (22:46)
[2017-12-10] MEDS: QUEtiapine FUMARATE 300 MG TABLET PO SCH (22:46)
[2017-12-10] MEDS: NICOTINE POLACRILEX 2 MG GUM BUC PRN (22:50)
[2017-12-11] MEDS: chlordiazePOXIDE HCL 10 MG CAPSULE PO SCH ×2 (05:34→10:22)
--- NOTE | 2017-12-11 09:37 | DS ---
[facility] Detox Discharge Summary Admission Date: 12/07/17 Discharge Date: 12/11/17 - History Present History: Alcohol Dependence Additional Comments: 42 male admitted on 12/07/17 for alcohol withdrawal sx completed alcohol detox regimen tolerated well denies alcohol withdrawal sx alert oriented x 3 no acute distress aftercare [facility] - Physical Exam Results Vital Signs: Vital Signs Temperature 97.7 F 12/11/17 06:00 Pulse Rate 73 12/11/17 06:00 Respiratory Rate 18 12/11/17 06:00 Blood Pressure 103/58 12/11/17 06:00 O2 Sat by Pulse Oximetry (%) Pertinent Admission Physical Exam Findings: alcohol withdrawal sx Vital Signs Temperature 97.7 F 12/11/17 06:00 Pulse Rate 73 12/11/17 06:00 Respiratory Rate 18 12/11/17 06:00 Blood Pressure 103/58 12/11/17 06:00 O2 Sat by Pulse Oximetry (%) Laboratory Last Values WBC 6.0 K/mm3 (4.0-10.0) 12/08/17 08:50 RBC 3.99 M/mm3 (4.00-5.60) L D 12/08/17 08:50 Hgb 11.6 GM/dL (11.7-16.9) L D 12/08/17 08:50 Hct 34.4 % (35.4-49) L D 12/08/17 08:50 MCV 86.0 fl (80-96) 12/08/17 08:50 MCH 29.2 pg (25.7-33.7) 12/08/17 08:50 MCHC 33.9 g/dl (32.0-35.9) 12/08/17 08:50 RDW 16.2 % (11.9-15.9) H 12/08/17 08:50 Plt Count 408 K/MM3 (134-434) 12/08/17 08:50 MPV 7.7 fl (7.5-11.1) 12/08/17 08:50 Sodium 143 mmol/L (136-145) 12/08/17 08:50 Potassium 3.9 mmol/L (3.5-5.1) 12/08/17 08:50 Chloride 109 mmol/L (98-107) H 12/08/17 08:50 Carbon Dioxide 25 mmol/L (21-32) 12/08/17 08:50 Anion Gap 9 (8-16) 12/08/17 08:50 BUN 13 mg/dL (7-18) 12/08/17 08:50 Creatinine 0.8 mg/dL (0.7-1.3) 12/08/17 08:50 Creat Clearance w eGFR > 60 (>60) 12/08/17 08:50 Random Glucose 91 mg/dL (74-106) 12/08/17 08:50 Calcium 8.6 mg/dL (8.5-10.1) 12/08/17 08:50 Total Bilirubin 0.4 mg/dL (0.2-1.0) 12/08/17 08:50 AST 15 U/L (15-37) 12/08/17 08:50 ALT 17 U/L (12-78) D 12/08/17 08:50 Alkaline Phosphatase 55 U/L (45-117) D 12/08/17 08:50 Total Protein 6.5 g/dl (6.4-8.2) 12/08/17 08:50 Albumin 3.2 g/dl (3.4-5.0) L 12/08/17 08:50 Urine Color Ltyellow 12/07/17 23:50 Urine Appearance Clear 12/07/17 23:50 Urine pH 5.0 (5.0-8.0) 12/07/17 23:50 Ur Specific [place] 1.009 (1.001-1.035) 12/07/17 23:50 Urine Protein Negative (NEGATIVE) 12/07/17 23:50 Urine Glucose (UA) Negative (NEGATIVE) 12/07/17 23:50 Urine Ketones Negative (NEGATIVE) 12/07/17 23:50 Urine Blood Negative (NEGATIVE) 12/07/17 23:50 Urine Nitrite Negative (NEGATIVE) 12/07/17 23:50 Urine Bilirubin Negative (<2.0 mg/dL) 12/07/17 23:50 Urine Urobilinogen Negative mg/dL (0.2-1.0) 12/07/17 23:50 Ur Leukocyte Esterase Negative (NEGATIVE) 12/07/17 23:50 Valproic Acid 41.7 ug/ml (50-100) L 12/09/17 08:00 RPR Titer Nonreactive (NONREACTIVE) 12/08/17 08:50 Hep C Ab Diagnostic <0.1 s/co ratio (0.0-0.9) 12/08/17 13:00 Liver Fibrosis Interp (.) 12/08/17 13:00 HIV 1&2 Antibody Screen Negative 12/08/17 09:18 HIV P24 Antigen Negative 12/08/17 09:18 lab noted valproic 41.7 PSYCHIATRIST AWARE - Treatment Hospital Course: Detox Protocol Followed, Detoxed Safely, Responded well, Discharged Condition Good, Rehab Referral Accepted Patient has Accepted a Rehab Referral to: [facility] recovery - Medication Discharge Medications: Ambulatory Orders Estrogens,Conjugated [Premarin Injection -] 25 mg IM Q14D 12/07/16 Sertraline HCl [Zoloft -] 100 mg PO DAILY #30 tablet 12/08/16 Calcium Carbonate [Calcium] 600 mg PO BID 09/19/17 Trazodone HCl 150 mg PO HS 09/19/17 Bupropion HCl [Wellbutrin Xl -] 150 mg PO DAILY #30 tab.sr.24h 12/08/17 Bupropion HCl [Wellbutrin Xl -] 150 mg PO DAILY #30 tab.sr.24h 12/08/17 Divalproex [Depakote -] 250 mg PO BID #60 tablet.ec 12/08/17 Quetiapine Fumarate [Seroquel -] 100 mg PO BID #60 tablet 12/08/17 Quetiapine Fumarate [Seroquel -] 300 mg PO HS #30 tablet 12/08/17 traZODone HCL [Desyrel -] 50 mg PO HS #30 tablet MDD 50 12/08/17 Albuterol Sulfate Inhaler - [Ventolin HFA Inhaler -] 2 puff IH Q4H PRN #1 inhaler 12/11/17 Gabapentin [Neurontin -] 600 mg PO TID #90 capsule 12/11/17 Spironolactone 100 mg PO BID #60 tablet 12/11/17 - Diagnosis (1) Asthma Current Visit: Yes Status: Chronic (2) Nicotine dependence Current Visit: Yes Status: Chronic Qualifiers: Nicotine product type: cigarettes Substance use status: in withdrawal Qualified Code(s): F17.213 - Nicotine dependence, cigarettes, with withdrawal (3) Bipolar disorder Current Visit: Yes Status: Suspected (4) Alcohol dependence with uncomplicated withdrawal Current Visit: Yes Status: Acute (5) GERD (gastroesophageal reflux disease) Current Visit: Yes Status: Chronic Qualifiers: Esophagitis presence: without esophagitis Qualified Code(s): K21.9 - Gastro -esophageal reflux disease without esophagitis - AMA Did Patient Leave Against Medical Advice: No
[2017-12-11 09:42] VITALS: BP 116/69; PULSE 66; TEMP 97.9
[2017-12-11] MEDS: QUEtiapine FUMARATE 100 MG TABLET (FP) PO SCH (10:21)
[2017-12-11] MEDS: PRENATAL VITAMINS W/ FOLIC ACID TABLET (FP) PO SCH (10:21)
[2017-12-11] MEDS: DIVALPROEX SODIUM 250 MG TABLET E.C. PO SCH (10:22)
[2017-12-11] MEDS: NICOTINE 14 MG/24 HOURS TOPICAL PATCH TD SCH (10:22)
== END 2017-12-11 10:49 | disposition home or self-care (01) | DRG 774 ==
LOC: YASAS 16:49 → Y6N 19:01
PROVIDERS: ADMIT Family Medicine Addiction Medicine; ATTEND Family Medicine Addiction Medicine
PROC: HZ2ZZZZ Detoxification Services for Substance Abuse Treatment (ICD-10-PCS; principal; 2017-12-07)
DX: F10.230 Alcohol dependence with withdrawal, uncomplicated (principal); F14.20 Cocaine dependence, uncomplicated; F12.20 Cannabis dependence, uncomplicated; F17.213 Nicotine dependence, cigarettes, with withdrawal; F31.9 Bipolar disorder, unspecified; F64.0 Transsexualism; J45.909 Unspecified asthma, uncomplicated; K21.9 Gastro-esophageal reflux disease without esophagitis; G40.509 Epileptic seizures related to external causes, not intractable, without status epilepticus; Z88.8 Allergy status to other drugs, medicaments and biological substances; Z59.0 Homelessness
CPT/HCPCS: 36415; 80053; 80164; 81003; 85027; 86593; 87389; 93005; 93010

== ENCOUNTER 2018-01-29 18:14 | Inpatient (IN) | payer OTHER ==
[2018-01-29 18:40] VITALS: BMI 18.8
--- NOTE | 2018-01-29 19:13 | HP ---
CIWA Score - CIWA Score Nausea/Vomitin Muscle Tremors: 3 Anxiety: 3 Agitation: 3 Paroxysmal Sweats: 2 Orientation: 0-Oriented Tacttile Disturbances: 1-Very Mild Itch/Numbness Auditory Disturbances: 1-Very Mild Visual Disturbances: 0-None Headache: 2-Mild CIWA-Ar Total Score: 18 Admission ROS S - HPI Chief Complaint: i need help to stop drinking alcohol cocaine,marijuana,heroin abused Allergies/Adverse Reactions: Allergies Allergy/AdvReac Type Severity Reaction Status Date / Time pork derived (porcine) Allergy Intermediate Rash Verified 01/29/18 19:52 aspirin AdvReac Severe NOSEBLEED Verified 01/29/18 19:52 ibuprofen AdvReac Severe nosebleed Verified 01/29/18 19:52 History of Present Illness: this 42 years old transgender male to female with alcohol,cocaine and marijuana dependence,heroin abused, seeking detox,withdrawal symptom.last treatment 12/07/17 t 12/11/17 extensive history of alcohol and multiple drugs dependence weight loss nicotine dependence wearing monitor by insurance company no significant period of sobriety prefer to be called nayely - Ebola screening Have you traveled outside of the country in the last 21 days: No (N) Have you had contact with anyone from an Ebola affected area: No Have you been sick,other than usual withdrawal symptoms: No Do you have a fever: No - Review of Systems Constitutional: Loss of Appetite, Malaise, Night Sweats, Changes in sleep, Weakness, Unintentional Wgt. Loss EENT: reports: Nose Congestion Respiratory: reports: No Symptoms reported Cardiac: reports: No Symptoms Reported GI: reports: Diarrhea, Nausea, Vomiting, Abdominal cramping : reports: No Symptoms Reported Musculoskeletal: reports: Back Pain, Muscle Pain Integumentary: reports: Dryness Neuro: reports: Headache, Tremors Endocrine: reports: No Symptoms Reported Hematology: reports: No Symptoms Reported Psychiatric: reports: No Sypmtoms Reported (manic depressive high anxiety ptsd manic depressive schizophrenia), Judgement Intact, Mood/Affect Appropiate Patient History - Patient Medical History Hx Anemia: No Hx Asthma: Yes (Albuterol) Hx Chronic Obstructive Pulmonary Disease (COPD): No Hx Cancer: No Hx Cardiac Disorders: No Hx Congestive Heart Failure: No Hx Hypertension: No Hx Hypercholesterolemia: No Hx Pacemaker: No HX Cerebrovascular Accident: No Hx Seizures: Yes (6 months ago) Hx Dementia: No Hx Diabetes: No Hx Gastrointestinal Disorders: No Hx Liver Disease: No Hx Genitourinary Disorders: No Hx Sexually Transmitted Disorders: No Hx Renal Disease (ESRD): No Hx Thyroid Disease: No Hx Human Immunodeficiency Virus (HIV): No (Negative last 12/12) Hx Hepatitis C: No Hx Depression: Yes (Depakote, Seroquel, Xanax, Hermann) Hx Suicide Attempt: No (Denies suicide attempt and suicidal ideation) Hx Bipolar Disorder: Yes (Depakote, Seroquel, Xanax, Hermann) Hx Schizophrenia: Yes (Depakote, Seroquel, Xanax, Hermann) Other Medical History: no suicidal,no homicidal - Patient Surgical History Past Surgical History: Yes Hx Neurologic Surgery: No Hx Cataract Extraction: No Hx Cardiac Surgery: No Hx Lung Surgery: No Hx Breast Surgery: No Hx Breast Biopsy: No Hx Abdominal Surgery: No Hx Appendectomy: No Hx Cholecystectomy: No Hx Genitourinary Surgery: No Hx Section: No Hx Orthopedic Surgery: Yes (FX OF LEFT LOWER LEG) Other Surgical History: fx, left mandible at age 17 Anesthesia Reaction: No - PPD History Previous Implant?: Yes Documented Results: Negative w/proof Implanted On Prior [facility] Admission?: Yes Date: 12/09/17 Results: 0mm PPD to be Administered?: No - Reproductive History Last Menstrual Period: 02/23/12 - Smoking Cessation Smoking history: Current every day smoker Have you smoked in the past 12 months: Yes Aproximately how many cigarettes per day: 40 Cigars Per Day: 0 Hx Chewing Tobacco Use: No Initiated information on smoking cessation: Yes 'Breaking Loose' booklet given: 01/29/18 - Substance & Tx. History Hx Alcohol Use: Yes Hx Substance Use: Yes Substance Use Type: Alcohol, Cocaine, Marijuana Hx Substance Use Treatment: Yes ([facility] 12/07/17 to 12/11/17) - Substances Abused Alcohol Route: Oral Frequency: Daily Amount used: 1/2pint of vodka/3 of 40 zs of beer Age of first use: 9 Date of Last Use: 01/29/18 Cocaine Route: Smoking Frequency: Daily Amount used: 100$ Age of first use: 10 Date of Last Use: 01/29/18 Marijuana/Hashish Route: Smoking Frequency: Daily Amount used: 40$ Age of first use: 12 Date of Last Use: 01/29/18 Heroin Route: Inhalation Frequency: 3-6 times per week Amount used: 20 bags Age of first use: 13 Date of Last Use: 01/25/18 Family Disease History - Family Disease History Family Disease History: Heart Disease: Grandparent, CA: Grandparent, Mother ( HIV +, Anal cancer, alcoholic), Respiratory: Sister, Other: Father (Bipolar, alcoholic), Mother, Brother (Depression) Admission Physical Exam S - Vital Signs Vital Signs: Vital Signs - 24 hr 01/29/18 18:39 Temperature 97.9 F Pulse Rate 79 Respiratory 16 Rate Blood Pressure 117/74 - Physical General Appearance: Yes: Moderate Distress, Tremorous, Irritable, Sweating, Anxious HEENTM: Yes: Normal ENT Inspection, DICK, Pharynx Normal Respiratory: Yes: Within Normal Limits, Lungs Clear, Normal Breath Sounds Neck: Yes: Within Normal Limits, Supple, Trachea in good position Breast: Yes: Within Normal Limits Cardiology: Yes: Within Normal Limits, Regular Rhythm, Regular Rate, S1, S2 Abdominal: Yes: Within Normal Limits, Normal Bowel Sounds, Non Tender, Flat, Soft Genitourinary: Yes: Within Normal Limits Back: Yes: Muscle Spasm Musculoskeletal: Yes: full range of Motion, Back pain, Muscle Pain Extremities: Yes: Normal Range of Motion, Tremors Neurological: Yes: beet topper II-XII NML intact, Fully Oriented, Alert, Motor Strength 5/5 Integumentary: Yes: Dry Lymphatic: Yes: Within Normal Limits - Diagnostic (1) Opioid dependence Current Visit: Yes Status: Acute (2) Alcohol dependence with uncomplicated withdrawal Current Visit: No Status: Acute (3) Asthma Current Visit: No Status: Chronic (4) Cannabis dependence, uncomplicated Current Visit: No Status: Chronic (5) Cocaine dependence, uncomplicated Current Visit: No Status: Chronic (6) GERD (gastroesophageal reflux disease) Current Visit: No Status: Chronic Qualifiers: Esophagitis presence: without esophagitis Qualified Code(s): K21.9 - Gastro -esophageal reflux disease without esophagitis (7) Zfvx-wu-[id number] transgender person Current Visit: No Status: Chronic (8) Nicotine dependence Current Visit: No Status: Chronic Qualifiers: Nicotine product type: cigarettes Substance use status: in withdrawal Qualified Code(s): F17.213 - Nicotine dependence, cigarettes, with withdrawal (9) PTSD (post-traumatic stress disorder) Current Visit: No Status: Chronic (10) Seizures Current Visit: No Status: Chronic (11) ADHD Current Visit: Yes Status: Acute (12) Manic depression Current Visit: Yes Status: Acute (13) Weight loss Current Visit: Yes Status: Acute Cleared for Admission [facility] - Detox or Rehab [facility] Level of Care: Medically Managed Detox Regimen/Protocol: Librium (urine for drug screen showed negativ e for opiate) [facility] Breath Alcohol Content Breath Alcohol Content: 0.042 Urine Drug Screen - Results Drug Screen Negative: No Urine Drug Screen Results: THC-Marijuana, EMMA-Cocaine
[2018-01-29] MEDS ORDERED: chlordiazePOXIDE HCL 25 MG CAPSULE PO PRN (19:30)
[2018-01-29] MEDS ORDERED: IBUPROFEN 400 MG TABLET (FP) PO PRN (19:30)
[2018-01-29] MEDS ORDERED: MAGNESIUM CITRATE 300 ML BOTTLE PO PRN (19:30)
[2018-01-29] MEDS ORDERED: MAG HYDROX/AL HYDROX/SIMETH 30 ML UNIT-DOSE CUP PO PRN (19:30)
[2018-01-29] MEDS ORDERED: MAGNESIUM HYDROX 2400MG/30ML ORAL SUSPENSION 30 ML CUP PO PRN (19:30)
[2018-01-29] MEDS ORDERED: MENTHOL/PHENOL 1 EACH UD MM PRN (19:30)
[2018-01-29] MEDS ORDERED: ACETAMINOPHEN 325 MG TABLET (FP) PO PRN (19:30)
[2018-01-29] MEDS ORDERED: hydrOXYzine PAMOATE 25 MG CAPSULE (FP) PO PRN (19:30)
[2018-01-29] MEDS ORDERED: P-EPHED 60MG/TRIPROLIDI 2.5MG TABLET PO PRN (19:30)
[2018-01-29] MEDS ORDERED: LOPERAMIDE HCL 2 MG CAPSULE PO PRN (19:30)
[2018-01-29] MEDS ORDERED: guaiFENesin/D-METHORPHAN HB 10 ML UNIT-DOSE CUPS PO PRN (19:30)
[2018-01-29] MEDS ORDERED: MELATONIN 5 MG TABLETS PO PRN (22:00)
[2018-01-29] MEDS: NICOTINE 21 MG/24 HOURS TOPICAL PATCH TD SCH (22:16)
[2018-01-29] MEDS: chlordiazePOXIDE HCL 25 MG CAPSULE PO SCH (22:17)
[2018-01-29] MEDS: cloNIDine HCL 0.1 MG TABLET PO SCH (22:18)
[2018-01-29] MEDS: THIAMINE HCL 100 MG TABLET (FP) PO SCH (22:18)
[2018-01-29] MEDS: CYCLOBENZAPRINE HCL 10 MG TABLET (FP) PO PRN (22:20)
[2018-01-29] MEDS: NICOTINE POLACRILEX 2 MG GUM BC PRN (22:21)
[2018-01-30 02:50] LABS: URINE APPEARANCE TURBID; URINE BILIRUBIN NEGATIVE (<2.0 mg/dL); URINE COLOR AMBER; URINE GLUCOSE (UA) NEGATIVE (NEGATIVE); URINE KETONE NEGATIVE (NEGATIVE); URINE LEUK ESTERASE NEGATIVE (NEGATIVE); URINE NITRITE NEGATIVE (NEGATIVE); URINE PROTEIN NEGATIVE (NEGATIVE); URINE UROBILINOGEN NEGATIVE mg/dL (0.2-1.0)
[2018-01-30] MEDS: chlordiazePOXIDE HCL 25 MG CAPSULE PO SCH ×4 (06:33→22:16)
--- NOTE | 2018-01-30 07:44 | CONSULT ---
[facility] Psychiatric Consult - Data Date of interview: 01/30/18 Admission source: [facility] Identifying data: This is 55 years old transgender female (male to female), single mother of three, living alone, on welfare, ambulating with cane, with a long history of Schizophrenia, history of psychiatric hospitalizations, with hitory of alcohol, heroin, cocaine, nicotine dependence, reporting withdrawal symptoms and is seeking admission to detox. Substance Abuse History: Smoking Cessation. Smoking history: Current every day smoker. Have you smoked in the past 12 months: Yes. Aproximately how many cigarettes per day: 40. Cigars Per Day: 0. Hx Chewing Tobacco Use: No. Initiated information on smoking cessation: Yes. 'Breaking Loose' booklet given : 01/29/18. - Substance & Tx. History. Hx Alcohol Use: Yes. Hx Substance Use : Yes. Substance Use Type: Alcohol, Cocaine, Marijuana. Hx Substance Use Treatment: Yes ([facility] 12/07/17 to 12/11/17). - Substances Abused. Alcohol. Route: Oral. Frequency: Daily. Amount used: 1/2pint of vodka/3 of 40 zs of beer. Age of first use: 9. Date of Last Use: 01/29/18. Cocaine. Route: Smoking. Frequency: Daily. Amount used: 100$. Age of first use: 10. Date of Last Use: 01/29/18. Marijuana/Hashish. Route: Smoking. Frequency: Daily. Amount used: 40$. Age of first use: 12. Date of Last Use: 01/29/18. Heroin. Route: Inhalation. Frequency: 3-6 times per week. Amount used: 20 bags. Age of first use: 13. Date of Last Use: 01/25/18 Medical History: Seixory history, R, eye blindness, Asthma, Weight loss history , L. Knee problem, ambulating with cane. Psychiatric History: Patient reports to carry Bipolar dfisorder, Schizophrenioa , ADHD, PTSD, reports most recent psychiatric admission on more then 20 years ago, reports suicidal attaempt at age [age] years old and following psychiatric admission, denies suicidal history sinth then, reports most recent psychiatric admission on 2015 at [facility]. Currently satble on: Depakote 250mg po bid. Seroquel 100mg po tid. Trazodone 150mg po qhs. Wellbutrine XL 150mg poqd. Zoloft 100mg poqd Physical/Sexual Abuse/Trauma History: S Additional Comment: Depakote 250mg po bid. Seroquel 100mg po tid. Trazodone 150mg po qhs. Wellbutrine XL 150mg poqd. Zoloft 100mg poqd Mental Status Exam - Mental Status Exam Alert and Oriented to: Person Cognitive Function: Fair Patient Appearance: Unkempt Mood: Sad Patient Behavior: Cooperative Speech Pattern: Delayed Voice Loudness: Mildly Soft/Quiet Thought Process: Goal Oriented Hallucinations: Denies Suicidal Ideation: Denies Homicidal Ideation: Denies Insight/Judgement: Fair Sleep: Difficulty falling asleep Appetite: Weight loss Muscle strength/Tone: Mild Hypotonicity Gait/Station: Normal Additional Comments: Depakote 250mg po bid. Seroquel 100mg po tid. Trazodone 150mg po qhs. Wellbutrine XL 150mg poqd. Zoloft 100mg poqd Psychiatric Findings - Problem List (Conception 1, 2,3) (1) ADHD Current Visit: Yes Status: Acute (2) Opioid dependence Current Visit: Yes Status: Acute (3) Weight loss Current Visit: Yes Status: Acute (4) Drug-induced mood disorder Current Visit: No Status: Acute (5) Use of cane as ambulatory aid Current Visit: No Status: Acute (6) Use of cane as ambulatory aid Current Visit: No Status: Acute (7) Asthma Current Visit: No Status: Chronic (8) Cannabis dependence, uncomplicated Current Visit: No Status: Chronic (9) Cocaine dependence, uncomplicated Current Visit: No Status: Chronic (10) Left knee injury Current Visit: No Status: Chronic (11) Evrl-nt-ktdavl transgender person Current Visit: No Status: Chronic (12) Nicotine dependence Current Visit: No Status: Chronic Qualifiers: Nicotine product type: cigarettes Substance use status: in withdrawal Qualified Code(s): F17.213 - Nicotine dependence, cigarettes, with withdrawal (13) Opioid dependence with withdrawal Current Visit: No Status: Chronic (14) PTSD (post-traumatic stress disorder) Current Visit: No Status: Chronic (15) Schizoaffective disorder Current Visit: No Status: Chronic Comment: History. Noncompliant with medications. (16) Seizures Current Visit: No Status: Chronic (17) Bipolar disorder Current Visit: No Status: Suspected - Initial Treatment Plan Initial Treatment Plan: Depakote 250mg po bid. Seroquel 100mg po tid. Trazodone 150mg po qhs. Wellbutrine XL 150mg poqd. Zoloft 100mg poqd. Depakote blood level
[2018-01-30] MEDS: PRENATAL VITAMINS W/ FOLIC ACID TABLET (FP) PO SCH (10:30)
[2018-01-30] MEDS: SERTRALINE HCL 50 MG TABLET (FP) PO SCH (10:30)
[2018-01-30] MEDS: DIVALPROEX SODIUM 250 MG TABLET E.C. PO SCH ×2 (10:30→22:15)
[2018-01-30] MEDS: cloNIDine HCL 0.1 MG TABLET PO SCH ×2 (10:30→22:15)
[2018-01-30] MEDS: NICOTINE POLACRILEX 2 MG GUM BC PRN ×2 (10:32→22:20)
[2018-01-30] MEDS: NICOTINE 21 MG/24 HOURS TOPICAL PATCH TD SCH (10:33)
[2018-01-30 11:10] LABS: HEMOGLOBIN 12.5 GM/dL (11.7-16.9)
[2018-01-30 11:13] LABS: HEMATOCRIT 37.3 % (35.4-49); MCHC 33.5 g/dl (32.0-35.9); MEAN CELL VOLUME 89.4 fl (80-96); MEAN PLT VOLUME 8.2 fl (7.5-11.1); PLATELET COUNT 424 K/MM3 (134-434); RBC 4.17 M/mm3 (4.00-5.60); RDW 14.3 % (11.9-15.9); WHITE BLOOD COUNT 6.4 K/mm3 (4.0-10.0)
--- NOTE | 2018-01-30 11:54 | EKG ---
Test Reason : Blood Pressure : / mmHG Vent. Rate : 068 BPM Atrial Rate : 068 BPM P-R Int : 170 ms QRS Dur : 098 ms QT Int : 372 ms P-R-T Axes : 065 012 037 degrees QTc Int : 395 ms NORMAL SINUS RHYTHM INCOMPLETE RIGHT BUNDLE BRANCH BLOCK BORDERLINE ECG WHEN COMPARED WITH ECG OF 08-DEC-2017 16:50, NO SIGNIFICANT CHANGE WAS FOUND Confirmed by GISSELL JEAN MD ([id number]) on 01/30/2018 11:53:43 AM Referred By: Confirmed By:GISSELL JEAN MD
[2018-01-30] MEDS ORDERED: ALBUTEROL SO4 8 GM HFA INHALER IH PRN (13:11)
--- NOTE | 2018-01-30 13:11 | PN ---
S CIWA - CIWA Score Nausea/Vomitin Muscle Tremors: 3 Anxiety: 3 Agitation: 2 Paroxysmal Sweats: 1-Minimal Palms Moist Orientation: 0-Oriented Tacttile Disturbances: 1-Very Mild Itch/Numbness Auditory Disturbances: 1-Very Mild Visual Disturbances: 0-None Headache: 2-Mild CIWA-Ar Total Score: 16 S Progress Note (SOAP) Subjective: alert,irritable,anxious,interrupted sleep,tremor,pain in the body Objective: 01/30/18 13:08 Vital Signs Temperature 97.2 F L 01/30/18 09:59 Pulse Rate 52 L 01/30/18 09:59 Respiratory Rate 16 01/30/18 09:59 Blood Pressure 126/76 01/30/18 09:59 O2 Sat by Pulse Oximetry (%) ekg nsr qt/qtc 372/395 no chest pain,no sob,no dizziness Laboratory Last Values WBC 6.4 K/mm3 (4.0-10.0) 01/30/18 07:00 RBC 4.17 M/mm3 (4.00-5.60) 01/30/18 07:00 Hgb 12.5 GM/dL (11.7-16.9) 01/30/18 07:00 Hct 37.3 % (35.4-49) 01/30/18 07:00 MCV 89.4 fl (80-96) 01/30/18 07:00 MCH 30.0 pg (25.7-33.7) 01/30/18 07:00 MCHC 33.5 g/dl (32.0-35.9) 01/30/18 07:00 RDW 14.3 % (11.9-15.9) D 01/30/18 07:00 Plt Count 424 K/MM3 (134-434) 01/30/18 07:00 MPV 8.2 fl (7.5-11.1) 01/30/18 07:00 POC Glucometer 137 UNITS (80-120) 01/29/18 20:34 Urine Color Leonila 01/29/18 22:23 Urine Appearance Turbid 01/29/18 22:23 Urine pH 6.0 (5.0-8.0) 01/29/18 22:23 Ur Specific [place] 1.030 (1.001-1.035) 01/29/18 22:23 Urine Protein Negative (NEGATIVE) 01/29/18 22:23 Urine Glucose (UA) Negative (NEGATIVE) 01/29/18 22:23 Urine Ketones Negative (NEGATIVE) 01/29/18 22:23 Urine Blood Negative (NEGATIVE) 01/29/18 22:23 Urine Nitrite Negative (NEGATIVE) 01/29/18 22:23 Urine Bilirubin Negative (<2.0 mg/dL) 01/29/18 22:23 Urine Urobilinogen Negative mg/dL (0.2-1.0) 01/29/18 22:23 Ur Leukocyte Esterase Negative (NEGATIVE) 01/29/18 22:23 RPR Titer Nonreactive (NONREACTIVE) 01/30/18 07:00 01/30/18 13:10 labs pending Assessment: 01/30/18 13:10 withdrawal symptom Plan: continue detox
[2018-01-30 13:25] LABS: CHLORIDE 109 mmol/L (98-107); POTASSIUM 3.9 mmol/L (3.5-5.1); SODIUM 139 mmol/L (136-145)
[2018-01-30 14:19] LABS: ALBUMIN 3.1 g/dl (3.4-5.0); ALK PHOS 49 U/L (45-117); ANION GAP 6 (8-16); BILIRUBIN,TOTAL 0.2 mg/dL (0.2-1.0); BLOOD UREA NITROGEN 13 mg/dL (7-18); CALCIUM 8.5 mg/dL (8.5-10.1); CO2 24 mmol/L (21-32); CREATININE 0.7 mg/dL (0.7-1.3); GLUCOSE,RANDOM 78 mg/dL (74-106); SGOT/AST 17 U/L (15-37); SGPT/ALT 15 U/L (12-78); TOT PROT 6.3 g/dl (6.4-8.2)
[2018-01-30] MEDS: QUEtiapine FUMARATE 100 MG TABLET (FP) PO SCH ×2 (14:30→22:17)
[2018-01-30] MEDS: GABAPENTIN 300 MG CAPSULE (FP) PO SCH ×2 (14:30→22:16)
[2018-01-30] MEDS: SPIRONOLACTONE 25 MG TABLET (FP) PO SCH (14:31)
[2018-01-30] MEDS: THIAMINE HCL 100 MG TABLET (FP) PO SCH (22:14)
[2018-01-30] MEDS: traZODone HCL 50 MG TABLET (FP) PO SCH (22:15)
[2018-01-30] MEDS: PATIENT'S OWN MEDICATION (NON-FORMULARY) (Estradiol [Estradiol] 2 MG) PO SCH (22:16)
[2018-01-31] MEDS: GABAPENTIN 300 MG CAPSULE (FP) PO SCH ×3 (06:35→22:10)
[2018-01-31] MEDS: chlordiazePOXIDE HCL 25 MG CAPSULE PO SCH ×3 (06:35→17:02)
[2018-01-31] MEDS: QUEtiapine FUMARATE 100 MG TABLET (FP) PO SCH ×3 (06:36→22:10)
[2018-01-31] MEDS: DIVALPROEX SODIUM 250 MG TABLET E.C. PO SCH ×2 (10:05→22:10)
[2018-01-31] MEDS: SERTRALINE HCL 50 MG TABLET (FP) PO SCH (10:05)
[2018-01-31] MEDS: cloNIDine HCL 0.1 MG TABLET PO SCH ×2 (10:05→22:09)
[2018-01-31] MEDS: PRENATAL VITAMINS W/ FOLIC ACID TABLET (FP) PO SCH (10:05)
[2018-01-31] MEDS: SPIRONOLACTONE 25 MG TABLET (FP) PO SCH (10:06)
[2018-01-31] MEDS: NICOTINE 21 MG/24 HOURS TOPICAL PATCH TD SCH (10:08)
[2018-01-31] MEDS: PATIENT'S OWN MEDICATION (NON-FORMULARY) (Estradiol [Estradiol] 2 MG) PO SCH (12:04)
--- NOTE | 2018-01-31 16:02 | PN ---
S CIWA - CIWA Score Nausea/Vomitin Muscle Tremors: 3 Anxiety: 2 Agitation: 2 Paroxysmal Sweats: 1-Minimal Palms Moist Orientation: 0-Oriented Tacttile Disturbances: 1-Very Mild Itch/Numbness Auditory Disturbances: 1-Very Mild Visual Disturbances: 0-None Headache: 2-Mild CIWA-Ar Total Score: 14 S Progress Note (SOAP) Subjective: alert,irritable,anxious,interrupted sleep,tremor Objective: 01/31/18 16:01 Vital Signs Temperature 97.9 F 01/31/18 14:12 Pulse Rate 60 01/31/18 14:12 Respiratory Rate 16 01/31/18 14:12 Blood Pressure 102/63 01/31/18 14:12 O2 Sat by Pulse Oximetry (%) Laboratory Last Values WBC 6.4 K/mm3 (4.0-10.0) 01/30/18 07:00 RBC 4.17 M/mm3 (4.00-5.60) 01/30/18 07:00 Hgb 12.5 GM/dL (11.7-16.9) 01/30/18 07:00 Hct 37.3 % (35.4-49) 01/30/18 07:00 MCV 89.4 fl (80-96) 01/30/18 07:00 MCH 30.0 pg (25.7-33.7) 01/30/18 07:00 MCHC 33.5 g/dl (32.0-35.9) 01/30/18 07:00 RDW 14.3 % (11.9-15.9) D 01/30/18 07:00 Plt Count 424 K/MM3 (134-434) 01/30/18 07:00 MPV 8.2 fl (7.5-11.1) 01/30/18 07:00 Sodium 139 mmol/L (136-145) 01/30/18 07:00 Potassium 3.9 mmol/L (3.5-5.1) 01/30/18 07:00 Chloride 109 mmol/L (98-107) H 01/30/18 07:00 Carbon Dioxide 24 mmol/L (21-32) 01/30/18 07:00 Anion Gap 6 (8-16) L 01/30/18 07:00 BUN 13 mg/dL (7-18) 01/30/18 07:00 Creatinine 0.7 mg/dL (0.7-1.3) 01/30/18 07:00 Creat Clearance w eGFR > 60 (>60) 01/30/18 07:00 POC Glucometer 137 UNITS (80-120) 01/29/18 20:34 Random Glucose 78 mg/dL (74-106) 01/30/18 07:00 Calcium 8.5 mg/dL (8.5-10.1) 01/30/18 07:00 Total Bilirubin 0.2 mg/dL (0.2-1.0) 01/30/18 07:00 AST 17 U/L (15-37) 01/30/18 07:00 ALT 15 U/L (12-78) 01/30/18 07:00 Alkaline Phosphatase 49 U/L (45-117) 01/30/18 07:00 Total Protein 6.3 g/dl (6.4-8.2) L 01/30/18 07:00 Albumin 3.1 g/dl (3.4-5.0) L 01/30/18 07:00 Urine Color Leonila 01/29/18 22:23 Urine Appearance Turbid 01/29/18 22:23 Urine pH 6.0 (5.0-8.0) 01/29/18 22:23 Ur Specific [place] 1.030 (1.001-1.035) 01/29/18 22:23 Urine Protein Negative (NEGATIVE) 01/29/18 22:23 Urine Glucose (UA) Negative (NEGATIVE) 01/29/18 22:23 Urine Ketones Negative (NEGATIVE) 01/29/18 22:23 Urine Blood Negative (NEGATIVE) 01/29/18 22:23 Urine Nitrite Negative (NEGATIVE) 01/29/18 22:23 Urine Bilirubin Negative (<2.0 mg/dL) 01/29/18 22:23 Urine Urobilinogen Negative mg/dL (0.2-1.0) 01/29/18 22:23 Ur Leukocyte Esterase Negative (NEGATIVE) 01/29/18 22:23 Valproic Acid 3.2 ug/ml (50-100) L 01/30/18 07:00 RPR Titer Nonreactive (NONREACTIVE) 01/30/18 07:00 Assessment: 01/31/18 16:01 withdrawal symptom Plan: continue detox,bgm monitoring
[2018-01-31] MEDS: traZODone HCL 50 MG TABLET (FP) PO SCH (22:10)
[2018-01-31] MEDS: THIAMINE HCL 100 MG TABLET (FP) PO SCH (22:10)
[2018-01-31] MEDS: CYCLOBENZAPRINE HCL 10 MG TABLET (FP) PO PRN (22:10)
[2018-01-31] MEDS: NICOTINE POLACRILEX 2 MG GUM BC PRN (22:14)
[2018-01-31] MEDS: chlordiazePOXIDE 5 MG CAPSULE PO SCH (22:14)
[2018-02-01] MEDS: QUEtiapine FUMARATE 100 MG TABLET (FP) PO SCH ×3 (05:56→22:31)
[2018-02-01] MEDS: CYCLOBENZAPRINE HCL 10 MG TABLET (FP) PO PRN (05:56)
[2018-02-01] MEDS: chlordiazePOXIDE 5 MG CAPSULE PO SCH ×3 (05:56→17:23)
[2018-02-01] MEDS: GABAPENTIN 300 MG CAPSULE (FP) PO SCH ×3 (05:56→22:16)
[2018-02-01] MEDS: SPIRONOLACTONE 25 MG TABLET (FP) PO SCH (10:33)
[2018-02-01] MEDS: PRENATAL VITAMINS W/ FOLIC ACID TABLET (FP) PO SCH (10:33)
[2018-02-01] MEDS: cloNIDine HCL 0.1 MG TABLET PO SCH ×2 (10:34→22:17)
[2018-02-01] MEDS: DIVALPROEX SODIUM 250 MG TABLET E.C. PO SCH ×2 (10:34→22:31)
[2018-02-01] MEDS: NICOTINE 21 MG/24 HOURS TOPICAL PATCH TD SCH (10:34)
[2018-02-01] MEDS: SERTRALINE HCL 50 MG TABLET (FP) PO SCH (10:34)
--- NOTE | 2018-02-01 14:28 | PN ---
S Progress Note (SOAP) Subjective: alert,irritable,anxious,interrupted sleep Objective: 02/01/18 14:27 Vital Signs Temperature 98.2 F 02/01/18 09:36 Pulse Rate 64 02/01/18 09:36 Respiratory Rate 16 02/01/18 09:36 Blood Pressure 111/70 02/01/18 09:36 O2 Sat by Pulse Oximetry (%) Assessment: 02/01/18 14:28 withdrawal symptom Plan: continue detox,discharge in am
[2018-02-01] MEDS: THIAMINE HCL 100 MG TABLET (FP) PO SCH (22:15)
[2018-02-01] MEDS: chlordiazePOXIDE HCL 10 MG CAPSULE PO SCH (22:16)
[2018-02-01] MEDS: traZODone HCL 50 MG TABLET (FP) PO SCH (22:16)
[2018-02-02] MEDS: chlordiazePOXIDE HCL 10 MG CAPSULE PO SCH ×2 (05:47→11:30)
[2018-02-02] MEDS: QUEtiapine FUMARATE 100 MG TABLET (FP) PO SCH (05:47)
[2018-02-02] MEDS: GABAPENTIN 300 MG CAPSULE (FP) PO SCH (05:47)
[2018-02-02 10:41] VITALS: BP 104/57; PULSE 80; TEMP 97.7
[2018-02-02] MEDS: SERTRALINE HCL 50 MG TABLET (FP) PO SCH (11:28)
[2018-02-02] MEDS: PRENATAL VITAMINS W/ FOLIC ACID TABLET (FP) PO SCH (11:28)
[2018-02-02] MEDS: DIVALPROEX SODIUM 250 MG TABLET E.C. PO SCH (11:28)
[2018-02-02] MEDS: cloNIDine HCL 0.1 MG TABLET PO SCH (11:29)
[2018-02-02] MEDS: NICOTINE 21 MG/24 HOURS TOPICAL PATCH TD SCH (11:29)
[2018-02-02] MEDS: SPIRONOLACTONE 25 MG TABLET (FP) PO SCH (11:29)
[2018-02-02] MEDS: NICOTINE POLACRILEX 2 MG GUM BC PRN (12:50)
--- NOTE | 2018-02-02 14:31 | PN ---
[facility] Progress Note (SOAP) Subjective: pt going to detox today, pt is concerned about being homeless and does not want to go to retirement after rehab Objective: 02/02/18 14:27 Vital Signs - 24 hr 02/01/18 02/01/18 02/02/18 18:58 22:36 00:30 Temperature 98.1 F 97.9 F Pulse Rate 65 60 Respiratory 18 18 16 Rate Blood Pressure 112/69 116/73 02/02/18 02/02/18 07:26 10:41 Temperature 97.5 F L 97.7 F Pulse Rate 57 L 80 Respiratory 18 16 Rate Blood Pressure 120/74 104/57 Breath Alcohol Content Breath Alcohol Content 0.042 Laboratory Tests 01/29/18 01/29/18 01/30/18 20:34 22:23 07:00 WBC 6.4 RBC 4.17 Hgb 12.5 Hct 37.3 MCV 89.4 MCH 30.0 MCHC 33.5 RDW 14.3 D Plt Count 424 MPV 8.2 Sodium Potassium Chloride Carbon Dioxide Anion Gap BUN Creatinine Creat Clearance w eGFR POC Glucometer 137 Random Glucose Calcium Total Bilirubin AST ALT Alkaline Phosphatase Total Protein Albumin Urine Color Leonila Urine Appearance Turbid Urine pH 6.0 Ur Specific [place] 1.030 Urine Protein Negative Urine Glucose (UA) Negative Urine Ketones Negative Urine Blood Negative Urine Nitrite Negative Urine Bilirubin Negative Urine Urobilinogen Negative Ur Leukocyte Esterase Negative Valproic Acid RPR Titer 01/30/18 01/30/18 01/30/18 07:00 07:00 07:00 WBC RBC Hgb Hct MCV MCH MCHC RDW Plt Count MPV Sodium 139 Potassium 3.9 Chloride 109 H Carbon Dioxide 24 Anion Gap 6 L BUN 13 Creatinine 0.7 Creat Clearance w eGFR > 60 POC Glucometer Random Glucose 78 Calcium 8.5 Total Bilirubin 0.2 AST 17 ALT 15 Alkaline Phosphatase 49 Total Protein 6.3 L Albumin 3.1 L Urine Color Urine Appearance Urine pH Ur Specific [place] Urine Protein Urine Glucose (UA) Urine Ketones Urine Blood Urine Nitrite Urine Bilirubin Urine Urobilinogen Ur Leukocyte Esterase Valproic Acid 3.2 L RPR Titer Nonreactive 01/31/18 02/01/18 02/01/18 16:33 05:59 16:39 WBC RBC Hgb Hct MCV MCH MCHC RDW Plt Count MPV Sodium Potassium Chloride Carbon Dioxide Anion Gap BUN Creatinine Creat Clearance w eGFR POC Glucometer 89 93 106 Random Glucose Calcium Total Bilirubin AST ALT Alkaline Phosphatase Total Protein Albumin Urine Color Urine Appearance Urine pH Ur Specific [place] Urine Protein Urine Glucose (UA) Urine Ketones Urine Blood Urine Nitrite Urine Bilirubin Urine Urobilinogen Ur Leukocyte Esterase Valproic Acid RPR Titer 02/02/18 06:34 WBC RBC Hgb Hct MCV MCH MCHC RDW Plt Count MPV Sodium Potassium Chloride Carbon Dioxide Anion Gap BUN Creatinine Creat Clearance w eGFR POC Glucometer 101 Random Glucose Calcium Total Bilirubin AST ALT Alkaline Phosphatase Total Protein Albumin Urine Color Urine Appearance Urine pH Ur Specific [place] Urine Protein Urine Glucose (UA) Urine Ketones Urine Blood Urine Nitrite Urine Bilirubin Urine Urobilinogen Ur Leukocyte Esterase Valproic Acid RPR Titer nl labs and nl Vs Assessment: 02/02/18 14:28 42 years old transgender male to female with alcohol,cocaine and marijuana dependence,heroin abused, completed detox Plan: to rehab today
--- NOTE | 2018-02-02 14:33 | DS ---
[facility] Detox Discharge Summary Admission Date: 01/29/18 Discharge Date: 02/02/18 - History Present History: Cocaine Dependence - Physical Exam Results Vital Signs: Vital Signs Temperature 97.7 F 02/02/18 10:41 Pulse Rate 80 02/02/18 10:41 Respiratory Rate 16 02/02/18 10:41 Blood Pressure 104/57 02/02/18 10:41 O2 Sat by Pulse Oximetry (%) Pertinent Admission Physical Exam Findings: this 42 years old transgender male to female with alcohol,cocaine and marijuana dependence,heroin abused, completed detox - Treatment Hospital Course: Detox Protocol Followed, Detoxed Safely, Responded well, Discharged Condition Good, Rehab Referral Accepted - Medication Discharge Medications: Ambulatory Orders Estrogens,Conjugated [Premarin Injection -] 25 mg IM Q14D 12/07/16 Calcium Carbonate [Calcium] 600 mg PO BID 09/19/17 Trazodone HCl 150 mg PO HS 09/19/17 Bupropion HCl [Wellbutrin Xl -] 150 mg PO DAILY #30 tab.sr.24h 12/08/17 Quetiapine Fumarate [Seroquel -] 300 mg PO HS #30 tablet 12/08/17 Albuterol Sulfate Inhaler - [Ventolin HFA Inhaler -] 2 puff IH Q4H PRN #1 inhaler 12/11/17 Gabapentin [Neurontin -] 600 mg PO TID #90 capsule 12/11/17 Estradiol 2 mg PO BID 01/29/18 Loperamide HCl [Loperamide] 2 mg PO QID 01/29/18 Metformin HCl [Glucophage] 500 mg PO BID 01/29/18 Quetiapine Fumarate [Seroquel -] 100 mg PO TID 01/29/18 Spironolactone 100 mg PO DAILY 01/29/18 traMADol HCL [Ultram] 50 mg PO Q8H 01/29/18 Bupropion HCl [Wellbutrin Xl -] 150 mg PO DAILY #30 tab.sr.24h 01/30/18 Divalproex [Depakote -] 250 mg PO BID #60 tablet.ec 01/30/18 Quetiapine Fumarate [Seroquel -] 100 mg PO TID #90 tab 01/30/18 Sertraline HCl [Zoloft -] 100 mg PO DAILY #30 tablet 01/30/18 Sertraline HCl [Zoloft -] 100 mg PO DAILY #30 tablet 01/30/18 traZODone HCL [Desyrel -] 150 mg PO HS #30 tablet MDD 50 01/30/18 - Diagnosis (1) Alcohol dependence with uncomplicated withdrawal Status: Acute (2) Opioid dependence with withdrawal Status: Chronic (3) PTSD (post-traumatic stress disorder) Status: Chronic (4) Bipolar disorder Status: Suspected - AMA Did Patient Leave Against Medical Advice: No
== END 2018-02-02 13:35 | disposition home or self-care (01) | DRG 773 ==
LOC: YASAS 18:14 → Y6N 20:45
PROVIDERS: ADMIT Surgery; ATTEND Surgery
PROC: HZ2ZZZZ Detoxification Services for Substance Abuse Treatment (ICD-10-PCS; principal; 2018-01-29)
DX: F11.23 Opioid dependence with withdrawal (principal); F10.230 Alcohol dependence with withdrawal, uncomplicated; F14.20 Cocaine dependence, uncomplicated; F12.20 Cannabis dependence, uncomplicated; F17.213 Nicotine dependence, cigarettes, with withdrawal; F43.10 Post-traumatic stress disorder, unspecified; F30.9 Manic episode, unspecified; F25.9 Schizoaffective disorder, unspecified; F90.9 Attention-deficit hyperactivity disorder, unspecified type; F32.9 Major depressive disorder, single episode, unspecified; F64.1 Dual role transvestism; H54.40 Blindness, one eye, unspecified eye; R26.2 Difficulty in walking, not elsewhere classified; Z99.89 Dependence on other enabling machines and devices; Z88.5 Allergy status to narcotic agent; Z87.890 Personal history of sex reassignment; Z86.69 Personal history of other diseases of the nervous system and sense organs; Z59.0 Homelessness
CPT/HCPCS: 36415; 80053; 80164; 81003; 82962; 85027; 86593; 93005; 93010; J0735

== ENCOUNTER 2018-10-23 16:08 | Inpatient (IN) | payer OTHER ==
[2018-10-23 18:42] VITALS: BMI 18.8
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
[2018-10-23] MEDS ORDERED: ALBUTEROL SO4 8 GM HFA INHALER IH PRN (19:43)
[2018-10-23] MEDS ORDERED: MAGNESIUM HYDROX 2400MG/30ML ORAL SUSPENSION 30 ML CUP PO PRN (19:46)
[2018-10-23] MEDS ORDERED: guaiFENesin 200 MG/10 ML 10 ML UNIT-DOSE CUPS PO PRN (19:46)
[2018-10-23] MEDS ORDERED: METHOCARBAMOL 500 MG TABLET PO PRN (19:46)
[2018-10-23] MEDS ORDERED: ACETAMINOPHEN 325 MG TABLET (FP) PO PRN ×2 (19:46)
[2018-10-23] MEDS ORDERED: MAGNESIUM CITRATE 300 ML BOTTLE PO PRN (19:46)
[2018-10-23] MEDS ORDERED: MELATONIN 5 MG TABLETS PO PRN (19:46)
[2018-10-23] MEDS ORDERED: chlordiazePOXIDE HCL 10 MG CAPSULE PO PRN (19:46)
[2018-10-23] MEDS ORDERED: MAG HYDROX/AL HYDROX/SIMETH 30 ML UNIT-DOSE CUP PO PRN (19:46)
[2018-10-23] MEDS ORDERED: MENTHOL/PHENOL 1 EACH UD MM PRN (19:46)
[2018-10-23] MEDS ORDERED: P-EPHED 60MG/TRIPROLIDI 2.5MG TABLET PO PRN (19:46)
[2018-10-23] MEDS ORDERED: METHADONE (DETOX) 10 MG, METHADONE (DETOX) 5 MG PO ONE (19:53)
[2018-10-23] MEDS ORDERED: METHADONE HCL 5 MG TABLET (FOR DETOX USE ONLY) ONE (21:06)
[2018-10-23] MEDS ORDERED: METHADONE HCL 10 MG TABLET (FOR DETOX USE ONLY) ONE (21:07)
[2018-10-23] MEDS: chlordiazePOXIDE HCL 25 MG CAPSULE PO SCH (21:14)
[2018-10-23] MEDS: LOPERAMIDE HCL 2 MG CAPSULE PO SCH (22:51)
[2018-10-23] MEDS: GABAPENTIN 300 MG CAPSULE (FP) PO SCH (22:52)
[2018-10-23] MEDS: cloNIDine HCL 0.1 MG TABLET PO PRN (22:53)
[2018-10-23] MEDS: QUEtiapine FUMARATE 100 MG TABLET (FP) PO SCH (22:53)
[2018-10-23] MEDS ORDERED: METHADONE HCL 5 MG TABLET (FOR DETOX USE ONLY) PO ONE (23:00)
[2018-10-23] MEDS: THIAMINE HCL 100 MG TABLET (FP) PO SCH (23:00)
[2018-10-23] MEDS: SPIRONOLACTONE 25 MG TABLET (FP) PO SCH (23:09)
[2018-10-24] MEDS: GABAPENTIN 300 MG CAPSULE (FP) PO SCH ×3 (06:34→22:33)
[2018-10-24] MEDS: QUEtiapine FUMARATE 100 MG TABLET (FP) PO SCH ×3 (06:34→22:34)
[2018-10-24] MEDS: chlordiazePOXIDE HCL 25 MG CAPSULE PO SCH ×2 (06:34→12:10)
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
[2018-10-24] MEDS ORDERED: ESTRADIOL VALERATE 200 MG/5 ML IM ONE ×2 (09:45→10:00)
[2018-10-24 09:49] LABS: HEMOGLOBIN 12.9 GM/dL (11.7-16.9); MCH 29.6 pg (25.7-33.7); MCHC 33.9 g/dl (32.0-35.9); MEAN CELL VOLUME 87.3 fl (80-96); MEAN PLT VOLUME 7.9 fl (7.5-11.1); PLATELET COUNT 433 K/MM3 (134-434); RBC 4.36 M/mm3 (4.00-5.60); RDW 14.2 % (11.9-15.9); WHITE BLOOD COUNT 6.1 K/mm3 (4.0-10.0)
[2018-10-24 09:59] LABS: ALBUMIN 3.9 g/dl (3.4-5.0); ALK PHOS 68 U/L (45-117); ANION GAP 7 MMOL/L (8-16); BILIRUBIN,TOTAL 0.4 mg/dL (0.2-1); BLOOD UREA NITROGEN 9 mg/dL (7-18); CALCIUM 9.3 mg/dL (8.5-10.1); CHLORIDE 102 mmol/L (98-107); CO2 28 mmol/L (21-32); CREATININE 0.9 mg/dL (0.55-1.3); GLUCOSE,RANDOM 89 mg/dL (74-106); POTASSIUM 3.7 mmol/L (3.5-5.1); SGOT/AST 19 U/L (15-37); SGPT/ALT 11 U/L (13-61); SODIUM 137 mmol/L (136-145); TOT PROT 7.8 g/dl (6.4-8.2)
[2018-10-24] MEDS ORDERED: NICOTINE 14 MG/24 HOURS TOPICAL PATCH TD SCH (10:00)
[2018-10-24] MEDS ORDERED: PATIENT'S OWN MEDICATION (NON-FORMULARY) (Lansoprazole [Prevacid] 30 MG) PO SCH (10:00)
[2018-10-24] MEDS ORDERED: METHADONE HCL 10 MG TABLET (FOR DETOX USE ONLY) PO ONE (10:00)
[2018-10-24] MEDS: NICOTINE POLACRILEX 2 MG GUM BUC PRN ×2 (10:00→13:52)
[2018-10-24] MEDS: LOPERAMIDE HCL 2 MG CAPSULE PO SCH ×4 (10:44→22:35)
[2018-10-24] MEDS: PRENATAL VITAMINS W/ FOLIC ACID TABLET (FP) PO SCH (10:44)
[2018-10-24] MEDS ORDERED: LANSOPRAZOLE 15 MG PO SCH (10:45)
[2018-10-24] MEDS: IBUPROFEN 600 MG TABLET (FP) PO PRN (10:46)
[2018-10-24] MEDS: cloNIDine HCL 0.1 MG TABLET PO PRN (10:46)
[2018-10-24] MEDS: NICOTINE 21 MG/24 HOURS TOPICAL PATCH TD SCH (10:55)
[2018-10-24] MEDS ORDERED: METHADONE (DETOX) 20 MG, METHADONE (DETOX) 5 MG PO ONE (11:00)
[2018-10-24] MEDS ORDERED: METHADONE HCL 10 MG TABLET (FOR DETOX USE ONLY) ONE (11:13)
[2018-10-24] MEDS ORDERED: METHADONE HCL 5 MG TABLET (FOR DETOX USE ONLY) ONE (11:13)
[2018-10-24] MEDS: LANSOPRAZOLE 15 MG PO SCH (11:16)
[2018-10-24] MEDS: SPIRONOLACTONE 25 MG TABLET (FP) PO SCH ×2 (11:17→22:34)
[2018-10-24] MEDS ORDERED: TRIMETHOBENZAMIDE HCL 200MG/2ML INJ IM PRN (13:12)
--- NOTE | 2018-10-24 14:10 | PN ---
S CIWA - CIWA Score Nausea/Vomitin Muscle Tremors: 3 Anxiety: 4-Mod. Anxious/Guarded Agitation: 2 Paroxysmal Sweats: 3 Orientation: 0-Oriented Tacttile Disturbances: 2-Mild Itch/Numbness/Burn Auditory Disturbances: 0-None Visual Disturbances: 1-Very Mild Sensitivity Headache: 0-None Present CIWA-Ar Total Score: 18 BHS COWS - Scale Resting Pulse: 0= [place] 80 or Below Sweatin= Chills/Flushing Restless Observation: 1= Difficult to Sit Still Pupil Size: 0= Normal to Room Light Bone or Joint Aches: 2= Severe Diffuse Aches Runny Nose/ Eye Tearin= None GI Upset > 30mins: 2= Nausea/Diarrhea Tremor Observation of Outstretched Hands: 2= Slight Tremor Visible Yawning Observation: 0= None Anxiety or Irritability: 2=Irritable/Anxious Goose Flesh Skin: 3=Piloerection COWS Score: 13 BHS Progress Note (SOAP) Subjective: Sweating, Tremors, Body Aches, Interrupted Sleep, Nausea, Anxious. Objective: PATIENT A & O X 3, OBSERVED AMBULATING ON UNIT UNASSISTED. IN NO ACUTE DISTRESS. 10/24/18 14:08 Vital Signs Temperature 97.7 F 10/24/18 13:20 Pulse Rate 73 10/24/18 13:20 Respiratory Rate 18 10/24/18 13:20 Blood Pressure 117/77 10/24/18 13:20 O2 Sat by Pulse Oximetry (%) Laboratory Tests 10/24/18 10/24/18 10/24/18 06:33 07:00 07:00 WBC 6.1 RBC 4.36 Hgb 12.9 Hct 38.0 MCV 87.3 MCH 29.6 MCHC 33.9 RDW 14.2 Plt Count 433 MPV 7.9 Sodium 137 Potassium 3.7 Chloride 102 Carbon Dioxide 28 Anion Gap 7 L BUN 9 Creatinine 0.9 Creat Clearance w eGFR 92.99 POC Glucometer 74 Random Glucose 89 Calcium 9.3 Total Bilirubin 0.4 AST 19 ALT 11 L Alkaline Phosphatase 68 Total Protein 7.8 Albumin 3.9 RPR Titer 10/24/18 07:00 WBC RBC Hgb Hct MCV MCH MCHC RDW Plt Count MPV Sodium Potassium Chloride Carbon Dioxide Anion Gap BUN Creatinine Creat Clearance w eGFR POC Glucometer Random Glucose Calcium Total Bilirubin AST ALT Alkaline Phosphatase Total Protein Albumin RPR Titer Nonreactive LABS NOTED. Assessment: 10/24/18 14:09 WITHDRAWAL SYMPTOMS. Plan: CONTINUE DETOX. PRN TIGAN IM FOR NAUSEA.
[2018-10-24] MEDS: THIAMINE HCL 100 MG TABLET (FP) PO SCH (22:33)
[2018-10-24] MEDS: chlordiazePOXIDE 5 MG CAPSULE PO SCH (22:39)
[2018-10-25] MEDS: chlordiazePOXIDE 5 MG CAPSULE PO SCH ×2 (06:11→14:16)
[2018-10-25] MEDS: GABAPENTIN 300 MG CAPSULE (FP) PO SCH ×3 (06:11→22:02)
[2018-10-25] MEDS: QUEtiapine FUMARATE 100 MG TABLET (FP) PO SCH ×3 (06:12→22:00)
[2018-10-25] MEDS: NICOTINE POLACRILEX 2 MG GUM BUC PRN ×4 (06:16→22:05)
[2018-10-25] MEDS ORDERED: METHADONE HCL 10 MG TABLET (FOR DETOX USE ONLY) PO ONE (10:00)
[2018-10-25] MEDS: LOPERAMIDE HCL 2 MG CAPSULE PO SCH ×4 (10:13→22:00)
[2018-10-25] MEDS: SPIRONOLACTONE 25 MG TABLET (FP) PO SCH ×2 (10:13→22:00)
[2018-10-25] MEDS: PRENATAL VITAMINS W/ FOLIC ACID TABLET (FP) PO SCH (10:13)
[2018-10-25] MEDS: NICOTINE 21 MG/24 HOURS TOPICAL PATCH TD SCH (10:14)
[2018-10-25] MEDS: LANSOPRAZOLE 15 MG PO SCH (10:15)
--- NOTE | 2018-10-25 12:48 | PN ---
S CIWA - CIWA Score Nausea/Vomitin-No Nausea/No Vomiting Muscle Tremors: 2 Anxiety: 4-Mod. Anxious/Guarded Agitation: 1-Slight > Activity Paroxysmal Sweats: 3 Orientation: 0-Oriented Tacttile Disturbances: 2-Mild Itch/Numbness/Burn Auditory Disturbances: 0-None Visual Disturbances: 2-Mild Sensitivity Headache: 0-None Present CIWA-Ar Total Score: 14 S COWS - Scale Resting Pulse: 0= [place] 80 or Below Sweatin= Chills/Flushing Restless Observation: 1= Difficult to Sit Still Pupil Size: 0= Normal to Room Light Bone or Joint Aches: 2= Severe Diffuse Aches Runny Nose/ Eye Tearin= None GI Upset > 30mins: 0= None Tremor Observation of Outstretched Hands: 2= Slight Tremor Visible Yawning Observation: 1= 1-2x During Session Anxiety or Irritability: 2=Irritable/Anxious Goose Flesh Skin: 3=Piloerection COWS Score: 12 S Progress Note (SOAP) Subjective: Sweating, Tremors, Body Aches, Anxious, Interrupted Sleep. Objective: PATIENT A & O X 3, OBSERVED AMBULATING ON UNIT UNASSISTED. IN NO ACUTE DISTRESS. 10/25/18 12:49 Vital Signs Temperature 97.9 F 10/25/18 09:00 Pulse Rate 74 10/25/18 09:00 Respiratory Rate 18 10/25/18 09:00 Blood Pressure 115/70 10/25/18 09:00 O2 Sat by Pulse Oximetry (%) Laboratory Tests 10/24/18 10/24/18 10/24/18 06:33 07:00 07:00 WBC 6.1 RBC 4.36 Hgb 12.9 Hct 38.0 MCV 87.3 MCH 29.6 MCHC 33.9 RDW 14.2 Plt Count 433 MPV 7.9 Sodium 137 Potassium 3.7 Chloride 102 Carbon Dioxide 28 Anion Gap 7 L BUN 9 Creatinine 0.9 Creat Clearance w eGFR 92.99 POC Glucometer 74 Random Glucose 89 Calcium 9.3 Total Bilirubin 0.4 AST 19 ALT 11 L Alkaline Phosphatase 68 Total Protein 7.8 Albumin 3.9 RPR Titer 10/24/18 10/24/18 10/25/18 07:00 16:25 06:07 WBC RBC Hgb Hct MCV MCH MCHC RDW Plt Count MPV Sodium Potassium Chloride Carbon Dioxide Anion Gap BUN Creatinine Creat Clearance w eGFR POC Glucometer 111 92 Random Glucose Calcium Total Bilirubin AST ALT Alkaline Phosphatase Total Protein Albumin RPR Titer Nonreactive LABS NOTED. Assessment: 10/25/18 12:50 WITHDRAWAL SYMPTOMS. Plan: CONTINUE DETOX. INCREASE DAILY PO FLUID / WATER INTAKE.
[2018-10-25] MEDS ORDERED: chlordiazePOXIDE HCL 10 MG CAPSULE PO PRN (21:00)
[2018-10-25] MEDS: chlordiazePOXIDE HCL 10 MG CAPSULE PO SCH (21:59)
[2018-10-25] MEDS: THIAMINE HCL 100 MG TABLET (FP) PO SCH (22:02)
[2018-10-26] MEDS: chlordiazePOXIDE HCL 10 MG CAPSULE PO SCH ×3 (06:12→21:56)
[2018-10-26] MEDS: QUEtiapine FUMARATE 100 MG TABLET (FP) PO SCH ×3 (06:12→21:56)
[2018-10-26] MEDS: GABAPENTIN 300 MG CAPSULE (FP) PO SCH ×3 (06:12→21:56)
[2018-10-26] MEDS: NICOTINE POLACRILEX 2 MG GUM BUC PRN ×2 (06:16→09:49)
[2018-10-26] MEDS: LANSOPRAZOLE 15 MG PO SCH (09:45)
[2018-10-26] MEDS: SPIRONOLACTONE 25 MG TABLET (FP) PO SCH ×2 (09:45→21:56)
[2018-10-26] MEDS: LOPERAMIDE HCL 2 MG CAPSULE PO SCH ×4 (09:48→22:12)
[2018-10-26] MEDS: PRENATAL VITAMINS W/ FOLIC ACID TABLET (FP) PO SCH (09:49)
[2018-10-26] MEDS: NICOTINE 21 MG/24 HOURS TOPICAL PATCH TD SCH (09:49)
[2018-10-26] MEDS ORDERED: METHADONE HCL 5 MG TABLET (FOR DETOX USE ONLY) PO ONE (10:00)
--- NOTE | 2018-10-26 12:28 | PN ---
S CIWA - CIWA Score Nausea/Vomitin-No Nausea/No Vomiting Muscle Tremors: None Anxiety: 4-Mod. Anxious/Guarded Agitation: 3 Paroxysmal Sweats: 2 Orientation: 0-Oriented Tacttile Disturbances: 1-Very Mild Itch/Numbness Auditory Disturbances: 0-None Visual Disturbances: 1-Very Mild Sensitivity Headache: 0-None Present CIWA-Ar Total Score: 11 S COWS - Scale Resting Pulse: 2= [place] 101-120 Sweatin= Chills/Flushing Restless Observation: 1= Difficult to Sit Still Pupil Size: 0= Normal to Room Light Bone or Joint Aches: 2= Severe Diffuse Aches Runny Nose/ Eye Tearin= None GI Upset > 30mins: 0= None Tremor Observation of Outstretched Hands: 0= None Yawning Observation: 1= 1-2x During Session Anxiety or Irritability: 2=Irritable/Anxious Goose Flesh Skin: 0=Smooth Skin COWS Score: 9 S Progress Note (SOAP) Subjective: Sweating, Body Aches, Anxious, Restless, Interrupted Sleep. Objective: PATIENT A & O X 3, OBSERVED AMBULATING ON UNIT UNASSISTED. IN NO ACUTE DISTRESS. 10/26/18 12:31 Vital Signs Temperature 98.1 F 10/26/18 10:04 Pulse Rate 108 H 10/26/18 10:04 Respiratory Rate 18 10/26/18 10:04 Blood Pressure 112/73 10/26/18 10:04 O2 Sat by Pulse Oximetry (%) Laboratory Tests 10/24/18 10/24/18 10/24/18 06:33 07:00 07:00 WBC 6.1 RBC 4.36 Hgb 12.9 Hct 38.0 MCV 87.3 MCH 29.6 MCHC 33.9 RDW 14.2 Plt Count 433 MPV 7.9 Sodium 137 Potassium 3.7 Chloride 102 Carbon Dioxide 28 Anion Gap 7 L BUN 9 Creatinine 0.9 Creat Clearance w eGFR 92.99 POC Glucometer 74 Random Glucose 89 Calcium 9.3 Total Bilirubin 0.4 AST 19 ALT 11 L Alkaline Phosphatase 68 Total Protein 7.8 Albumin 3.9 RPR Titer 10/24/18 10/24/18 10/25/18 07:00 16:25 06:07 WBC RBC Hgb Hct MCV MCH MCHC RDW Plt Count MPV Sodium Potassium Chloride Carbon Dioxide Anion Gap BUN Creatinine Creat Clearance w eGFR POC Glucometer 111 92 Random Glucose Calcium Total Bilirubin AST ALT Alkaline Phosphatase Total Protein Albumin RPR Titer Nonreactive 10/25/18 10/26/18 16:28 06:11 WBC RBC Hgb Hct MCV MCH MCHC RDW Plt Count MPV Sodium Potassium Chloride Carbon Dioxide Anion Gap BUN Creatinine Creat Clearance w eGFR POC Glucometer 99 81 Random Glucose Calcium Total Bilirubin AST ALT Alkaline Phosphatase Total Protein Albumin RPR Titer LABS NOTED. Assessment: 10/26/18 12:33 WITHDRAWAL SYMPTOMS. Plan: CONTINUE DETOX.
[2018-10-26] MEDS ORDERED: ARTIFICIAL TEARS (POLYVINYL ALCOHOL) OPTH DROPS OU PRN (18:42)
--- NOTE | 2018-10-26 18:43 | PN ---
[facility] Progress Note Note: Vital Signs Temperature 98.1 F 10/26/18 17:39 Pulse Rate 96 H 10/26/18 17:39 Respiratory Rate 18 10/26/18 17:39 Blood Pressure 121/77 10/26/18 17:39 O2 Sat by Pulse Oximetry (%) c/o of dry eyes artificial tears bilateral prn continue to monitor
[2018-10-26] MEDS: THIAMINE HCL 100 MG TABLET (FP) PO SCH (21:56)
[2018-10-26] MEDS: IBUPROFEN 600 MG TABLET (FP) PO PRN (21:57)
[2018-10-27] MEDS ORDERED: METHADONE HCL 10 MG TABLET (FOR DETOX USE ONLY) PO ONE (06:00)
[2018-10-27] MEDS: QUEtiapine FUMARATE 100 MG TABLET (FP) PO SCH (06:01)
[2018-10-27] MEDS: GABAPENTIN 300 MG CAPSULE (FP) PO SCH (06:01)
[2018-10-27 09:49] VITALS: BP 135/82; PULSE 91; TEMP 97.9
[2018-10-27] MEDS: LANSOPRAZOLE 15 MG PO SCH (10:03)
[2018-10-27] MEDS: LOPERAMIDE HCL 2 MG CAPSULE PO SCH (10:03)
[2018-10-27] MEDS: PRENATAL VITAMINS W/ FOLIC ACID TABLET (FP) PO SCH (10:03)
[2018-10-27] MEDS: SPIRONOLACTONE 25 MG TABLET (FP) PO SCH (10:03)
[2018-10-27] MEDS: NICOTINE 21 MG/24 HOURS TOPICAL PATCH TD SCH (10:04)
[2018-10-27] MEDS: NICOTINE POLACRILEX 2 MG GUM BUC PRN (10:05)
--- NOTE | 2018-10-27 19:03 | DS ---
[facility] Detox Discharge Summary Admission Date: 10/23/18 Discharge Date: 10/27/18 - History Present History: Alcohol Dependence, Cannabis Dependence, Cocaine Dependence, Opioid Dependence Additional Comments: PATIENT GOING TO [facility] ([place], [place]) FOR AFTERCARE. PATIENT DECLINED OFFER OF MEDICATION PRESCRIPTION FOR HOME MEDICATION AT TIME OF DISCHARGE FROM DETOX, NOTING THAT HE CURRENTLY HAS ADEQUATE SUPPLIES OF ALL PRESCRIBED HOME MEDICATIONS WITH BELONGINGS BROUGHT WITH HIM AT TIME OF ADMISSION TO DETOX UNIT. PATIENT WAS DISCHARGED FROM DETOX UNIT IN STABLE MEDICAL CONDITION. Pertinent Past History: History of Seizures, G.E.R.D, AUse Of A Cane As An ambulatory Aid, Asthma, Chronic Pain, Depression, Bipolar disorder, anxiety, Schizoaffective disorder, P.T.S.D.. - Physical Exam Results Vital Signs: Vital Signs Temperature 97.9 F 10/27/18 09:32 Pulse Rate 91 H 10/27/18 09:32 Respiratory Rate 18 10/27/18 09:32 Blood Pressure 135/82 10/27/18 09:32 O2 Sat by Pulse Oximetry (%) Pertinent Admission Physical Exam Findings: WITHDRAWAL SYMPTOMS. Laboratory Tests 10/24/18 10/24/18 10/24/18 06:33 07:00 07:00 WBC 6.1 RBC 4.36 Hgb 12.9 Hct 38.0 MCV 87.3 MCH 29.6 MCHC 33.9 RDW 14.2 Plt Count 433 MPV 7.9 Sodium 137 Potassium 3.7 Chloride 102 Carbon Dioxide 28 Anion Gap 7 L BUN 9 Creatinine 0.9 Creat Clearance w eGFR 92.99 POC Glucometer 74 Random Glucose 89 Calcium 9.3 Total Bilirubin 0.4 AST 19 ALT 11 L Alkaline Phosphatase 68 Total Protein 7.8 Albumin 3.9 RPR Titer 10/24/18 10/24/18 10/25/18 07:00 16:25 06:07 WBC RBC Hgb Hct MCV MCH MCHC RDW Plt Count MPV Sodium Potassium Chloride Carbon Dioxide Anion Gap BUN Creatinine Creat Clearance w eGFR POC Glucometer 111 92 Random Glucose Calcium Total Bilirubin AST ALT Alkaline Phosphatase Total Protein Albumin RPR Titer Nonreactive 10/25/18 10/26/18 10/26/18 16:28 06:11 16:42 WBC RBC Hgb Hct MCV MCH MCHC RDW Plt Count MPV Sodium Potassium Chloride Carbon Dioxide Anion Gap BUN Creatinine Creat Clearance w eGFR POC Glucometer 99 81 122 Random Glucose Calcium Total Bilirubin AST ALT Alkaline Phosphatase Total Protein Albumin RPR Titer 10/27/18 06:00 WBC RBC Hgb Hct MCV MCH MCHC RDW Plt Count MPV Sodium Potassium Chloride Carbon Dioxide Anion Gap BUN Creatinine Creat Clearance w eGFR POC Glucometer 80 Random Glucose Calcium Total Bilirubin AST ALT Alkaline Phosphatase Total Protein Albumin RPR Titer LABS NOTED. - Treatment Hospital Course: Detox Protocol Followed, Detoxed Safely, Responded well, Discharged Condition Good, Rehab Referral Accepted Patient has Accepted a Rehab Referral to: [facility] ([place], [place]). - Medication Discharge Medications: Ambulatory Orders Calcium Carbonate [Calcium] 600 mg PO BID 09/19/17 Albuterol Sulfate Inhaler - [Ventolin HFA Inhaler -] 2 puff IH Q4H PRN #1 inhaler 12/11/17 Gabapentin [Neurontin -] 600 mg PO TID #90 capsule 12/11/17 Loperamide HCl [Loperamide] 2 mg PO QID 01/29/18 Spironolactone 100 mg PO DAILY 01/29/18 traMADol HCL [Ultram] 50 mg PO Q8H 01/29/18 Bupropion HCl [Wellbutrin Xl -] 150 mg PO DAILY #30 tab.sr.24h 01/30/18 Quetiapine Fumarate [Seroquel -] 100 mg PO TID #90 tab 01/30/18 Estradiol Valerate [Delestrogen] 0.5 ml IM 10/23/18 Metformin HCl [Glucophage] 500 mg PO BIDAC 10/23/18 Lansoprazole [Prevacid] 15 mg PO DAILY 10/24/18 - Diagnosis (1) Alcohol dependence with uncomplicated withdrawal Status: Acute (2) Cannabis dependence, uncomplicated Status: Acute (3) Cocaine dependence, uncomplicated Status: Acute (4) Opioid dependence with withdrawal Status: Acute (5) Substance induced mood disorder Status: Acute (6) Substance-induced sleep disorder Status: Acute (7) Use of cane as ambulatory aid Status: Acute (8) Chronic pain Status: Chronic Qualifiers: Chronic pain type: other chronic pain Qualified Code(s): G89.29 - Other chronic pain (9) GERD (gastroesophageal reflux disease) Status: Chronic Qualifiers: Esophagitis presence: without esophagitis Qualified Code(s): K21.9 - Gastro -esophageal reflux disease without esophagitis (10) Nicotine dependence Status: Chronic Qualifiers: Nicotine product type: cigarettes Substance use status: in withdrawal Qualified Code(s): F17.213 - Nicotine dependence, cigarettes, with withdrawal (11) PTSD (post-traumatic stress disorder) Status: Chronic (12) Schizoaffective disorder Status: Chronic Qualifiers: Schizoaffective disorder type: unspecified Qualified Code(s): F25.9 - Schizoaffective disorder, unspecified (13) Seizures Status: Chronic (14) Bipolar disorder Status: Suspected Qualifiers: Active/Remission status: remission status unspecified Qualified Code(s): F31.9 - Bipolar disorder, unspecified - AMA Did Patient Leave Against Medical Advice: No
[2018-10-28] MEDS ORDERED: METHADONE HCL 5 MG TABLET (FOR DETOX USE ONLY) PO ONE (06:00)
== END 2018-10-27 11:10 | disposition home or self-care (01) | DRG 773 ==
LOC: YASAS 16:08 → Y6N 20:01
PROVIDERS: ADMIT Surgery; ATTEND Surgery
PROC: HZ2ZZZZ Detoxification Services for Substance Abuse Treatment (ICD-10-PCS; principal; 2018-10-23)
DX: F11.23 Opioid dependence with withdrawal (principal); F10.230 Alcohol dependence with withdrawal, uncomplicated; F14.20 Cocaine dependence, uncomplicated; F12.20 Cannabis dependence, uncomplicated; F17.213 Nicotine dependence, cigarettes, with withdrawal; F25.9 Schizoaffective disorder, unspecified; F19.24 Other psychoactive substance dependence with psychoactive substance-induced mood disorder; F19.282 Other psychoactive substance dependence with psychoactive substance-induced sleep disorder; F31.9 Bipolar disorder, unspecified; F41.9 Anxiety disorder, unspecified; F43.10 Post-traumatic stress disorder, unspecified; F64.0 Transsexualism; G40.909 Epilepsy, unspecified, not intractable, without status epilepticus; J45.909 Unspecified asthma, uncomplicated; G89.29 Other chronic pain; H57.89 Other specified disorders of eye and adnexa; R26.89 Other abnormalities of gait and mobility; Z99.89 Dependence on other enabling machines and devices; Z86.69 Personal history of other diseases of the nervous system and sense organs
CPT/HCPCS: 36415; 80053; 82962; 85027; 86593; J0735

== ENCOUNTER 2024-05-02 10:24 | Inpatient (IN) | payer OTHER ==
[2024-05-02 10:51] VITALS: BMI 17.5
[2024-05-02] MEDS ORDERED: P-EPHED 60MG/TRIPROLIDI 2.5MG TABLET PO PRN (11:26)
[2024-05-02] MEDS ORDERED: BENZONATATE 200 MG CAPSULE PO PRN (11:26)
[2024-05-02] MEDS ORDERED: DICYCLOMINE HCL 10 MG CAPSULE PO PRN (11:26)
[2024-05-02] MEDS ORDERED: MAGNESIUM HYDROX 2400MG/30ML ORAL SUSPENSION 30 ML CUP PO PRN (11:26)
[2024-05-02] MEDS ORDERED: ONDANSETRON *ODT* 4 MG TABLET SL PRN (11:26)
[2024-05-02] MEDS ORDERED: NICOTINE POLACRILEX 2 MG LOZENGE BC PRN (11:26)
[2024-05-02] MEDS ORDERED: POLYETHYLENE GLYCOL (HEALTHYLAX) 3350 17 GM PACKET PO PRN (11:26)
[2024-05-02] MEDS ORDERED: LOPERAMIDE HCL 2 MG CAPSULE PO PRN (11:26)
[2024-05-02] MEDS ORDERED: NALOXONE (NYS OPIOID OVERDOSE PROGRAM) 4 MG/0.1 ML SPRAY NS PRN (11:26)
[2024-05-02] MEDS ORDERED: guaiFENesin 600 MG TABLET.ER (FP) PO PRN (11:26)
[2024-05-02] MEDS ORDERED: MAG HYDROX/AL HYDROX/SIMETH 30 ML UNIT-DOSE CUP PO PRN (11:26)
[2024-05-02] MEDS: hydrOXYzine PAMOATE 25 MG CAPSULE (FP) PO PRN (17:43)
[2024-05-02] MEDS: ACETAMINOPHEN 325 MG TABLET (FP) PO PRN (17:43)
[2024-05-02] MEDS: MELATONIN 5 MG TABLETS PO SCH (22:09)
[2024-05-02] MEDS: QUEtiapine FUMARATE 50 MG TABLET PO SCH (22:11)
[2024-05-02] MEDS: diazePAM 5 MG TABLET PO SCH (22:11)
[2024-05-02] MEDS: THIAMINE 100 MG TABLET PO SCH (22:12)
[2024-05-02] MEDS: NICOTINE POLACRILEX 2 MG GUM BUC PRN (22:13)
[2024-05-02] MEDS: METHOCARBAMOL 500 MG TABLET PO PRN (23:24)
[2024-05-02] MEDS: ALBUTEROL SO4 HFA INHALER IH PRN (23:25)
[2024-05-03] MEDS ORDERED: ALBUTEROL SO4 HFA INHALER IH PRN (09:18)
[2024-05-03] MEDS: CALCIUM (OYSTER SHELL) 500 MG TABLET (FP) PO SCH (10:23)
[2024-05-03] MEDS: PRENATAL VITAMINS W/ FOLIC ACID TABLET (FP) PO SCH (10:23)
[2024-05-03] MEDS: PANTOPRAZOLE 20 MG TABLET PO SCH (10:23)
[2024-05-03] MEDS: SPIRONOLACTONE 25 MG TABLET PO SCH (10:24)
[2024-05-03] MEDS: ESTROGENS,CONJUGATED 1.25 MG TABLET PO SCH (10:24)
[2024-05-03] MEDS ORDERED: ESTRADIOL VALERATE 100 MG/5 ML VIAL IM SCH (13:25)
[2024-05-03] MEDS: ESTRADIOL VALERATE 200 MG/5 ML IM SCH (13:31)
[2024-05-03 15:08] LABS: HEMATOCRIT 39.1 % (35.4-49); MCH 30.4 pg (25.7-33.7); MCHC 33.3 g/dl (32.0-35.9); MEAN CELL VOLUME 91.3 fl (80-96); MEAN PLT VOLUME 7.9 fl (7.5-11.1); PLATELET COUNT 420 10^3/uL (134-434); RBC 4.28 M/mm3 (4.00-5.60); WHITE BLOOD COUNT 8.7 K/mm3 (4.0-10.0)
[2024-05-03 15:18] LABS: POTASSIUM 3.5 mmol/L (3.5-5.1)
[2024-05-03 15:20] LABS: CALCIUM 9.2 mg/dL (8.5-10.1)
[2024-05-03 15:21] LABS: ALBUMIN 3.2 g/dl (3.4-5.0); BLOOD UREA NITROGEN 10.8 mg/dL (7-18)
[2024-05-03 15:25] LABS: BILIRUBIN,TOTAL 0.2 mg/dL (0.2-1); CREATININE 0.7 mg/dL (0.55-1.3); TOT PROT 6.7 g/dl (6.4-8.2)
[2024-05-03 17:53] LABS: HIV INTERPRETATION NEGATIVE (NEGATIVE)
[2024-05-03] MEDS: ESTRADIOL VALERATE 100 MG/5 ML VIAL IM SCH (21:17)
[2024-05-03] MEDS: HYDROCORTISONE 1% TOPICAL CREAM 30 GM TUBE TP PRN (22:15)
[2024-05-04] MEDS: diazePAM 5 MG TABLET PO SCH (05:41)
[2024-05-04] MEDS: diazePAM 5 MG TABLET PO PRN (10:15)
[2024-05-04] MEDS: BENZOCAINE/MENTHOL (CHLORASEPTIC ) LOZENGE MM PRN (22:20)
[2024-05-05] MEDS: diazePAM 5 MG TABLET PO SCH (05:24)
[2024-05-06] MEDS: diazePAM 5 MG TABLET PO ONE (05:38)
[2024-05-06 06:42] VITALS: RESP 17
[2024-05-06 08:52] VITALS: BP 128/85; PULSE 78; TEMP 97.6
== END 2024-05-06 10:29 | disposition home or self-care (01) | DRG 775 ==
LOC: YASAS 10:24 → Y3N 11:41
PROVIDERS: ADMIT Allergy & Immunology; ATTEND Surgery
PROC: HZ2ZZZZ Detoxification Services for Substance Abuse Treatment (ICD-10-PCS; principal; 2024-05-02)
DX: F10.230 Alcohol dependence with withdrawal, uncomplicated (principal); F17.210 Nicotine dependence, cigarettes, uncomplicated; F32.A Depression, unspecified; J45.909 Unspecified asthma, uncomplicated; K21.9 Gastro-esophageal reflux disease without esophagitis; G89.29 Other chronic pain; R21 Rash and other nonspecific skin eruption
CPT/HCPCS: 36415; 80053; 80305; 80307; 85027; 86780; 86803; 87389; J1410